=== PATIENT | female | born 1985 | race Caucasian/White ===

== ENCOUNTER 2020-08-31 11:10 | Emergency (ER) | payer MEDICARE, MEDICAID, SELFPAY ==
--- NOTE | 2020-08-31 12:27 | ED_ITS ---
HPI - URI/Sore Throat General Chief Complaint: Upper Respiratory Symptoms Stated Complaint: sore throat Time Seen by Provider: 08/31/20 12:08 Source: patient Mode of arrival: ambulatory Limitations: no limitations History of Present Illness HPI Narrative: Otherwise healthy 35-year-old female who reports prior history of strep in her teen years otherwise no past medical or surgical history presenting ambulatory via triage complaint of sore throat and white spots in the back of her throat. States this is been there for past 2 days and has had throat pain/irritation. She otherwise denies any dysphagia, difficulty breathing any GI or symptoms. No sick contacts or recent travel. MD elicited complaint: sore throat Onset (ago): day(s) Consistency: constant Severity: moderate Able to tolerate fluids by mouth: Yes Exacerbating factors: nothing Relieving factors: lozenge Associated symptoms: denies other symptoms Treatments prior to arrival: none Related Data Previous Rx's Medication Instructions Recorded penicillin V potassium 500 mg PO Q12H 10 Days #20 tab 08/31/20 Allergies Allergy/AdvReac Type Severity Reaction Status Date / Time No Known Allergies Allergy Verified 08/31/20 12:36 acetaminophen [Percocet] AdvReac Unknown increased Verified 08/31/20 12:36 anxiety, itching oxycodone [Percocet] AdvReac Unknown increased Verified 08/31/20 12:36 anxiety, itching Review of Systems Review of Systems: Constitutional: No Weight loss, No Fever, No Chills, No Night Sweats, No Fatigue, No Malaise ENT/Mouth: No Hearing loss, No Ear Pain, No Nasal Congestion, No Sinus Pain, No Hoarseness, No sore throat, No Rhinorrhea, No Swallowing Difficulty Eyes: No Eye Pain, No Swelling, No Redness, No Foreign Body, No Discharge, No Vision Changes Cardiovascular: No Chest Pain, No SOB, No Dyspnea on Exertion, No Orthopnea, No Edema, No Palpitations Respiratory: No Cough, No Sputum, No Wheezing, No Smoke Exposure, No Dyspnea Gastrointestinal: No Nausea, No Vomiting, No Diarrhea, No Constipation, No abdominal Pain, No Hematochezia, No Melena Genitourinary: No Dysuria, No Urinary Frequency, No Hematuria, No Urinary Incontinence, No Urgency, No Flank Pain, No Urinary Flow Changes, No Hesitancy Musculoskeletal: No joint pain, No Myalgias, No Joint Swelling Skin: No Skin Lesions, No rash Neuro: No Weakness, No Numbness, No Paresthesias, No Loss of Consciousness, No D izziness, No Headache Psych: No Social Issues Heme/Lymph: No Bruising, No Bleeding,No Lymphadenopathy Endocrine: No Polyuria, No Polydipsia, No Temperature Intolerance Yes all other systems are reviewed and are negative PMFSH Past Medical History Medical History No known health problems Social History Social History Advance Directives: No Advance Directives Information Provided: No Physical Exam Vital Signs: Vital Signs: Last Vital Signs Temp 98.3 F 08/31/20 12:37 Pulse 84 08/31/20 12:37 Resp 12 08/31/20 12:37 BP 137/82 08/31/20 12:37 Pulse Ox 98 08/31/20 12:37 Body Mass Index 32.5 Reviewed Const: General: cooperative and healthy appearing; No acute distress or intoxicated appearing Nutritional Appearance: average body habitus Orientation/consciousness: patient oriented x3 HENMT: Head: Yes normal to inspection Ears: hearing grossly normal bilaterally Mouth: Normal oral and palatal mucosa present, lip normal and tongue normal Teeth and gingiva: dentition normal Throat: Yes uvula midline, Yes abnormal tonsil (2+ with white exudate bilaterally. No evidence of [employer]CH[employer]ICIAN), No postnasal drainage, No uvula laterally displaced, No uvular edema and No cobblestoning Eyes: General: appearance normal, both eyes and all related structures Visual Young: normal visual young by confrontation Neck: Neck: Yes normal visual inspection, No positive Brudzinski's sign, No positive Kernig's sign and No tender Thyroid: Thyroid normal Chest: Chest palpation & inspection: normal inspection of the chest Resp: Effort & Inspection: normal respiratory effort Cardio: Jugular venous distension: no JVD GI: Inspection: Yes normal to inspection Percussion: Yes normal to percussion Auscultation: normal bowel sounds : General: Yes no CVA tenderness Back/Spine/Pelvis: Back: no CVA tenderness Skin: General skin exam: no rashes or lesions noted Neuro: General: patient oriented x3 Extrem: General: Yes normal to inspection Course Course Course Narrative: Feels like she has strep similar to her previous episodes exam consistent with strep pharyngitis will get rapid strep/culture if negative and COVID testing. She does not want to wait and would like to be called with the results. In the meantime will discharge her on penicillin, precaution him return, follow-up instructions she verbalized understanding and comfortable plan. Stable for discharge. Reevaluation(s) Reevaluation #1: 1430 Called and informed of her results MDM - URI/Sore Throat Lab Data Labs: Lab Results 08/31/20 Range/Units 12:48 Coronavirus (PCR) NEGATIVE (Negative) Influenza Type A (PCR) NEGATIVE (Negative) Influenza Type B (PCR) NEGATIVE (Negative) RSV RNA Qual (PCR) NEGATIVE (Negative) Discharge Plan Discharge Clinical Impression: Pharyngitis Qualifiers: Pharyngitis/tonsillitis etiology: streptococcus Qualified Code(s): J02.0 - S treptococcal pharyngitis Patient Disposition: Home, Self-Care Instructions: Pharyngitis (ED) Additional Instructions: Self-isolation Social distancing Take your antibiotics as prescribed We will call you with her strep and COVID results in 1 hour Although your exam is very much consistent with strep pharyngitis will go ahead and start you on antibiotics Supportive home care is reviewed Return if any concerns or worsening symptoms Thank you Prescriptions: New penicillin V potassium 500 mg tablet 500 mg PO Q12H 10 Days Qty: 20 RF: 0 Referrals: Audrey Simons FNP [Primary Care Provider] - 2 weeks
[2020-08-31 12:37] VITALS: BP 137/82; PULSE 84; RESP 12; TEMP 36.8; O2SAT 98; BMI 32.5
[2020-08-31 14:20] LABS: Influenza A PCR NEGATIVE (Negative); Influenza B PCR NEGATIVE (Negative); Resp Syncy Virus RNA Qual PCR NEGATIVE (Negative); SARS COV2 PCR INHOUSE NEGATIVE (Negative)
== END 2020-08-31 13:00 | disposition home or self-care (01) ==
PROVIDERS: Nurse Practitioner Primary Care; Emergency Provider Emergency Medicine; PCP Nurse Practitioner Family
DX: J02.0 Streptococcal pharyngitis (principal); Z20.822 Contact with and (suspected) exposure to COVID-19
CPT/HCPCS: 0241U; 36415; 87071; 87880; 99283

== ENCOUNTER 2020-11-29 21:06 | Emergency (ER) | payer MEDICARE, MEDICAID, SELFPAY ==
[2020-11-29 21:46] VITALS: BP 132/73; PULSE 82; RESP 18; TEMP 37; O2SAT 99; BMI 32.5
--- NOTE | 2020-11-29 22:49 | ED.SKABFB ---
HPI - Skin/Abscess/Foreign Bdy General Chief complaint: Skin/Abscess/Foreign Body Stated complaint: abcess Time Seen by Provider: 11/29/20 21:43 Source: patient Mode of arrival: ambulatory Limitations: no limitations History of Present Illness HPI narrative: 35-year-old female presents with cyst under the right breast. States this cyst has been present for quite some time however it gets enlarged every so often and is very painful. She finds it very difficult wearing clothes because of clothing rubs up against the area particularly her bras. She feels like she needs to tape upper breast to prevent the pressure on the cyst. She states this is the most painful it has been and is concerned about infection. She had the cyst evaluated while back however it was too small to be removed. 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 She denies fevers, chills, chest pain or pressure, palpitations, shortness breath, shortness breath on exertion, abdominal pain, abdominal distention, dysuria, hematuria, nausea, vomiting, diarrhea, constipation, and any other concerning symptoms. MD complaint: abscess/boil Onset (ago): day(s) (Three) Tetanus up to date: yes Location: chest Severity: moderate Severity scale (1-10): 5 Quality: aching Pain Consistency: constant Exacerbating factors: palpation and movement Associated symptoms: denies other symptoms Related Data Previous Rx's Medication Instructions Recorded penicillin V potassium 500 mg PO Q12H 10 Days #20 tab 08/31/20 amoxicillin-pot clavulanate 1 tab PO Q12H 10 Days #20 tab 11/29/20 [Augmentin] Allergies Allergy/AdvReac Type Severity Reaction Status Date / Time No Known Allergies Allergy Verified 08/31/20 12:36 acetaminophen [Percocet] AdvReac Unknown increased Verified 08/31/20 12:36 anxiety, itching oxycodone [Percocet] AdvReac Unknown increased Verified 08/31/20 12:36 anxiety, itching Review of Systems Review of Systems: Constitutional: No Fever, No Chills ENT/Mouth: No Ear Pain, No Hoarseness, No sore throat Eyes: No Eye Pain, No Swelling, No Redness, No Foreign Body Cardiovascular: No Chest Pain, No SOB Respiratory: No Cough, No Dyspnea Gastrointestinal: No Nausea, No Vomiting, No Diarrhea, No abdominal Pain Genitourinary: No Dysuria, No Hematuria Musculoskeletal: No joint pain, No Myalgias, No Joint Swelling Skin: Positive inflamed area under the right breast, No Skin lacerations, No rash Neuro: No Weakness, No Numbness, No Paresthesias, No Loss of Consciousness, No Dizziness, No Headache Psych: No Anxiety/Panic, No Depression Heme/Lymph: no easy bruising, no Lymphadenopathy Endocrine: No Polyuria, No Polydipsia Yes all other systems are reviewed and are negative [facility] Past Medical History Attestation statement: The following information was validated with the patient. Source: old records reviewed Medical History No known health problems Social History Social History Advance Directives: No Patient : No Physical Exam Vital Signs: Vital Signs: Last Vital Signs Temp 98.6 F 11/29/20 21:46 Pulse 82 11/29/20 21:46 Resp 18 11/29/20 21:46 BP 132/73 11/29/20 21:46 Pulse Ox 99 11/29/20 21:46 Body Mass Index 32.5 Appearance: Alert. Oriented X3. No acute distress. Eyes: Pupils equal, round and reactive to light. ENT: Pharynx normal. Neck: Normal inspection. Neck supple. CVS: Normal heart rate and rhythm. Pulses normal. Respiratory: No respiratory distress. Breath sounds normal. Abdomen: Soft and nontender. Skin: 3 cm x 2 cm area of cellulitis with hardened cyst-like nodule under the right breast. No area of fluctuance or pustule noted. Skin warm and dry. Normal skin color. Normal skin turgor. Extremities: No lower extremity edema. Neuro: No motor deficit. No sensory deficit. Course Course Course Narrative: 35-year-old female presents with enlarged cyst under the right breast. Cyst is hardened, there is some cellulitis over the area, measures approximately 4 cm x 2 cm. No area of fluctuance, highly unlikely that this can be appropriately I indeed at this time. Will order antibiotics Augmentin, and have patient follow-up with the General surgery for evaluation. This cyst fluctuates in size and pain level however this is the most painful this cyst has been for her. Patient verbalized understanding of and agrees plan of care discharge home. MDM - Skin/Abscess/Foreign Bdy Differential Diagnosis Differential diagnosis: Likely abscess of skin or subcutaneous tissue Medical Records Attestation: I reviewed the patient's medical records. Discharge Plan Discharge Clinical Impression: Cellulitis, Cyst Patient Disposition: Home, Self-Care Instructions: Cellulitis (ED), Cyst (ED) Additional Instructions: You were evaluated for a cyst with cellulitis under the right breast. We are giving you Augmentin antibiotic. Please take medication as directed. Complete the entire course. Please follow-up with Dr. Juarez, he has a surgeon. Make sure you bring the pictures of the cyst with you. Use Tylenol or Motrin as needed for pain management. Continue to use the warm compresses. Thank you for choosing this emergency department for evaluation. Please follow-up with primary care physician as needed. Return to the emergency department for any new, concerning, or worsening symptoms. Prescriptions: New amoxicillin-pot clavulanate [Augmentin] 875-125 mg tablet 1 tab PO Q12H 10 Days Qty: 20 RF: 0 No Action penicillin V potassium 500 mg tablet 500 mg PO Q12H 10 Days Qty: 20 RF: 0 Interventions: ED Discharge Assessment Last Done: 11/29/20 23:27 Discharge Date/Time: 11/29/20 23:28
[2020-11-29] MEDS: Amoxicillin/Potassium Clav 875 MG TABLET PO (23:21)
== END 2020-11-29 23:28 | disposition home or self-care (01) ==
PROVIDERS: Emergency Provider Internal Medicine
DX: L03.313 Cellulitis of chest wall (principal); L72.3 Sebaceous cyst
CPT/HCPCS: 99283

== ENCOUNTER → 2020-12-03 09:01 | Outpatient (BNVA) | payer MEDICARE, MEDICAID, SELFPAY | PROVIDERS: Visit Provider Surgery | DX: L02.91 Cutaneous abscess, unspecified (principal) | CPT/HCPCS: 10061; 99202 ==

== ENCOUNTER 2021-08-20 09:16 | Emergency (ER) | payer MEDICARE, MEDICAID, SELFPAY ==
[2021-08-20 09:22] VITALS: BP 144/68; PULSE 81; RESP 18; TEMP 36.8; O2SAT 100; BMI 31.7
--- NOTE | 2021-08-20 09:48 | ED.GENADULT ---
HPI - General Adult General Chief complaint: Skin/Abscess/Foreign Body Stated complaint: abscess Time Seen by Provider: 08/20/21 09:40 Source: patient Limitations: no limitations History of Present Illness HPI narrative: Patient presents the ER complaining of left medial breast question infection versus abscess. Patient states symptoms started about 3-4 days ago patient had some amoxicillin home which she started which gave her marked improvement of redness of that area on the left side. Patient states she has had slight infections in the past but never had them drained. There has been no discharge from this area. Patient takes clonazepam as needed for anxiety he has been taking the amoxicillin recently. No other complaints at this time. Patient does have an allergy to oxycodone. Pain 10/27. Related Data Home Medications Medication Instructions Recorded Confirmed clonazepam 2 mg tablet 2 mg PO BID PRN 12/03/20 12/03/20 Previous Rx's Medication Instructions Recorded penicillin V potassium 500 mg 500 mg PO Q12H 10 Days #20 tab 08/31/20 tablet amoxicillin 875 mg-potassium 1 tab PO Q12H 10 Days #20 tab 11/29/20 clavulanate 125 mg tablet (Augmentin) cephalexin 500 mg capsule 500 mg PO Q8H 7 Days #21 cap 11/30/20 amoxicillin 875 mg-potassium 1 tab PO BID #20 tab 08/20/21 clavulanate 125 mg tablet Allergies Allergy/AdvReac Type Severity Reaction Status Date / Time oxycodone [Percocet] AdvReac Unknown increased Verified 08/20/21 09:21 anxiety, itching Review of Systems Constitutional: Constitutional: Denies chills, Denies fatigue, Denies fever(s) and Denies headache(s) ENT: Denies headache(s) Cardiovascular: Cardiovascular: Denies chest pain and Denies dyspnea Respiratory: Respiratory: Denies dyspnea Gastrointestinal: Gastrointestinal: Denies diarrhea, Denies nausea and Denies vomiting Integumentary/Breasts: Skin/Breast: Reports other (Left medial breast redness) Neurologic: Denies headache(s) Endocrine: Endocrine: Denies fatigue PMFSH Past Medical History Attestation statement: The following information was validated with the patient. Medical History Depression No known health problems Subcutaneous abscess Surgical History History of delivery Family History Family History Maternal Grandmother Stomach cancer Family/Other Thyroid cancer Social History Social History Alcohol intake: never Patient Tobacco Use Status: Never used Tobacco Use of substances other than those prescribed or required for medical reasons: No Advance Directives: No Physical Exam ED Vital Signs: Vital Signs - 24 hr 08/20/21 09:22 Temperature 98.3 F Pulse Rate 81 Respiratory Rate 18 Blood Pressure 144/68 H Pulse Oximetry 100 BMI result Body Mass Index 31.7 vital signs have been reviewed as normal and appeared to be correct. Blood pressure normal. Heart rate normal. Respiration rate normal. Temperature normal. Oxygen saturation normal. Appearance: Alert. Oriented X3. No acute distress. Head: Normal external exam. Normocephalic. Atraumatic. No Quiroz signs noted. No raccoon eyes noted Eyes: PERRLA. EOMI. Conjunctiva and sclera normal. Eyelids normal. ENT: Pharynx normal. Uvula midline. Moist mucous membranes. Neck: Soft full range of motion Back: Full range of motion noted. Skin: Left medial breast area of erythema slight induration noted. Nonfluctuant mass or a hard small area. Rest of the breast is clear size approximate 2-4 cm Extremities: No lower extremity edema. Extremities exhibit normal range of motion. Extremities nontender. Neuro: Oriented X 3. No motor deficit. No sensory deficit. Reflexes normal. Course Course Course Narrative: Left breast cellulitis Skin abscess Cyst Case discussed with Dr. Joshua will do the needle aspirate at this time change patient overall to Augmentin Procedures Procedure Narrative Procedure Narrative: Left medial breasts I&D Area cleaned with Betadine Anesthetized with 1% lidocaine 18 gauge needle aspirated positive purulent discharge Small incision placed with 11 blade positive purulent discharge no packing placed wound dressed Discharge Plan Discharge Clinical Impression: Abscess of skin or subcutaneous tissue Patient Disposition: Home, Self-Care Instructions: Abscess (ED), Abscess Incision and Drainage (DC) Additional Instructions: Antibiotics as directed Return if symptoms worsen Warm compresses recommended Prescriptions: New amoxicillin-pot clavulanate 875-125 mg tablet 1 tab PO BID Qty: 20 0RF No Action penicillin V potassium 500 mg tablet 500 mg PO Q12H 10 Days Qty: 20 0RF amoxicillin-pot clavulanate [Augmentin] 875-125 mg tablet 1 tab PO Q12H 10 Days Qty: 20 0RF cephalexin 500 mg capsule 500 mg PO Q8H 7 Days Qty: 21 0RF clonazepam 2 mg tablet 2 mg PO BID [id number]
--- NOTE | 2021-08-20 09:49 | PC.NURSE ---
pt a&o, no sob or chest pain. provider into assess pt with this Rn at the bedside. No sign of distress during examination. Will continue to monitor.
--- NOTE | 2021-08-20 09:53 | PC.NURSE ---
pt medicated per mar for bedside procedure.
[2021-08-20] MEDS: Lidocaine HCl 1 % 20 ML VIAL 5 ML INFILTRATI (09:56)
[2021-08-20] MEDS: Amoxicillin/Potassium Clav 875 MG TABLET PO (10:36)
[2021-08-20 10:40] VITALS: RESP 16
== END 2021-08-20 10:41 | disposition home or self-care (01) ==
PROVIDERS: Emergency Provider Emergency Medicine; PCP Internal Medicine
DX: N61.1 Abscess of the breast and nipple (principal)
CPT/HCPCS: 10060; 99284

== ENCOUNTER → 2022-03-04 10:38 | Outpatient (BNVA) | payer MEDICARE, MEDICAID, SELFPAY | PROVIDERS: PCP Internal Medicine; Referring Provider Internal Medicine; Visit Provider Surgery | DX: N61.1 Abscess of the breast and nipple (principal); L72.9 Follicular cyst of the skin and subcutaneous tissue, unspecified | CPT/HCPCS: 10060; 10061; 99212 ==

== ENCOUNTER → 2022-07-19 13:49 | Outpatient (BNVA) | payer MEDICARE, MEDICAID, SELFPAY | PROVIDERS: PCP Internal Medicine; Visit Provider Surgery | DX: N61.1 Abscess of the breast and nipple (principal) | CPT/HCPCS: 10061; 87070; 87205; 99212 ==

== ENCOUNTER 2022-07-19 16:24 | Outpatient (REF) | payer MEDICARE, MEDICAID, SELFPAY | END 2022-07-19 16:25 | disposition home or self-care (01) | LOC: HO.LNP 16:24 | PROVIDERS: Visit Provider Surgery | DX: Z13.89 Encounter for screening for other disorder (principal) | CPT/HCPCS: 87070; 87205 ==

== ENCOUNTER → 2022-08-04 14:08 | Outpatient (BNVA) | payer MEDICARE, MEDICAID, SELFPAY | PROVIDERS: PCP Internal Medicine; Visit Provider Surgery | DX: L72.9 Follicular cyst of the skin and subcutaneous tissue, unspecified (principal); Z98.890 Other specified postprocedural states | CPT/HCPCS: 99212 ==

== ENCOUNTER 2022-10-13 13:22 | Outpatient (REF) | payer MEDICARE, MEDICAID, SELFPAY ==
[2022-10-16 07:23] LABS: HPV mRNA E6/E7 rflx Not Detected (Not Detected)
== END 2022-10-13 13:23 | disposition home or self-care (01) ==
LOC: HO.LNP 13:22
PROVIDERS: PCP Internal Medicine; Visit Provider Obstetrics & Gynecology
DX: Z01.419 Encounter for gynecological examination (general) (routine) without abnormal findings (principal); D25.9 Leiomyoma of uterus, unspecified
CPT/HCPCS: 87624; 88142

== ENCOUNTER 2022-10-22 13:04 | Outpatient (REF) | payer MEDICARE, MEDICAID, SELFPAY ==
--- NOTE | ~2022-10-22 | US_ITS ---
EXAMINATION: US PELVIS CLINICAL INFORMATION: 37-year-old, LMP 1423. Follow-up fibroid. COMPARISON: 01/06/2017 TECHNIQUE: Ultrasound of the pelvis is performed using both transabdominal and transvaginal transducers along with Doppler. Transvaginal imaging is performed due to inadequate visualization transabdominally. FINDINGS: Uterus: The uterus is anteverted and measures 9.3 x 6.0 x 6.7 cm. The double wall endometrial thickness is 0.9 mm. The uterus is smooth in contour and has normal myometrial echogenicity. Multiple uterine fibroids are noted. Left posterior uterine body subserosal fibroid measures 3.2 cm. Right anterior uterine body subserosal fibroid measures 2.5 cm. Left posterior uterine body fibroid measures 2.6 cm with a possible submucosal component. Adnexa: Both ovaries are visualized. There is normal color flow to the adnexa. There is no ovarian torsion. There is no pelvic ascites or fluid collection. Right ovary measures 3.3 x 2.9 x 2.3 cm. Left ovary measures 3.8 x 2.6 x 2.5 cm. Left intraovarian 1.3 x 1.6 x 1.7 cm cyst, avascular with low level internal echoes. US/US pelvic and transvaginal IMPRESSION: * Left intraovarian 1.7 cm avascular cyst with low-level internal echoes may reflect a hemorrhagic cyst. Recommend follow-up in 6-12 weeks to assess for resolution. * Multiple uterine fibroids, one of which may have a submucosal component.
== END 2022-10-22 13:05 | disposition home or self-care (01) ==
LOC: HO.US 13:04
PROVIDERS: PCP Internal Medicine; Visit Provider Obstetrics & Gynecology
DX: D25.9 Leiomyoma of uterus, unspecified (principal)
CPT/HCPCS: 76830; 76856

== ENCOUNTER → 2022-11-11 11:48 | Outpatient (BNVA) | payer MEDICARE, MEDICAID, SELFPAY | PROVIDERS: PCP Internal Medicine; Visit Provider Obstetrics & Gynecology | DX: D25.9 Leiomyoma of uterus, unspecified (principal); N83.299 Other ovarian cyst, unspecified side | CPT/HCPCS: 99212 ==

== ENCOUNTER 2022-12-08 11:15 | Outpatient (REF) | payer MEDICARE, MEDICAID, SELFPAY ==
--- NOTE | ~2022-12-08 | US_ITS ---
EXAMINATION: US PELVIS CLINICAL INFORMATION: Ovarian cysts, nonspecific COMPARISON: 10/22/2022 TECHNIQUE: Ultrasound of the pelvis is performed using both transabdominal and transvaginal transducers along with Doppler. Transvaginal imaging is performed due to inadequate visualization transabdominally. FINDINGS: Uterus: The uterus is anteverted and measures 9.5 x 5.8 x 5.9 cm. With a volume of 170 mL There are a few uterine fibroids size is 3.8 x 3.8 x 2.8 cm growing since previous study in the posterior aspect of the fundus, 2.7 x 2.2 x 2.8 cm, in the anterior body subserosal slightly growing since the previous study, 2.4 x 2.0 x 2.5 cm diminished since previous examination in the lower uterine segment posterior and 3.9 x 2.5 x 2.6 cm, in anterior aspect of the body. The double wall endometrial thickness is 0.5 mm. Adnexa: Both ovaries are visualized. There is normal color flow to the adnexa. There is no ovarian torsion. There is no pelvic ascites or fluid collection. Right ovary measures 2.6 x 2.2 x 2.5 cm. With a volume of 7.7 mL. There are no cysts or masses Left ovary measures 2.7 x 2.0 x 2.4 cm. With a volume of 8.1 mL. There are no cysts or masses. US/US pelvic and transvaginal IMPRESSION: Multiple uterine fibroids.
== END 2022-12-08 11:16 | disposition home or self-care (01) ==
LOC: HO.US 11:15
PROVIDERS: PCP Internal Medicine; Visit Provider Obstetrics & Gynecology
DX: N83.299 Other ovarian cyst, unspecified side (principal)
CPT/HCPCS: 76830; 76856

== ENCOUNTER 2022-12-29 12:02 | Outpatient (AMB) | payer MEDICARE, MEDICAID, SELFPAY ==
--- NOTE | 2022-12-29 12:03 | MHC.OFFVIS ---
Intake Vital Signs 12/29/22 12:06 Height 5 ft 4 in Weight 178 lb 9.191 oz BMI 30.6 BP 110/70 Intake Visit Reasons: US Follow up Walking Dragline Operator Required: No Information Interpreted: non-clinical & clinical Accompanied by: Self / Same As Patient Allergies oxycodone [Percocet] Adverse Reaction (Unknown, Verified 12/29/22 12:06) increased anxiety, itching Is last menstrual period known: Yes Last menstrual period: 12/24/22 HPI HPI Comments History of Present Illness Details Presenting for follow-up ultrasound. Ultrasound done recently showed the following: Uterus: The uterus is anteverted and measures 9.5 x 5.8 x 5.9 cm.? With a volume of 170 mL There are a few uterine fibroids size is 3.8 x 3.8 x 2.8 cm growing since previous study in the posterior aspect of the fundus, 2.7 x 2.2 x 2.8 cm, in the anterior body subserosal slightly growing since the previous study, 2.4 x 2.0 x 2.5 cm diminished since previous examination in the lower uterine segment posterior and 3.9 x 2.5 x 2.6 cm, in anterior aspect of the body. The double wall endometrial thickness is 0.5 mm.? Adnexa: Both ovaries are visualized. There is normal color flow to the adnexa. There is no ovarian torsion.? There is no pelvic ascites or fluid collection. Right ovary measures 2.6 x 2.2 x 2.5 cm. With a volume of 7.7 mL. There are no cysts or masses Left ovary measures 2.7 x 2.0 x 2.4 cm. With a volume of 8.1 mL. There are no cysts or masses. [facility] Medical History Cyst of buttocks Depression Left breast abscess No known health problems Subcutaneous abscess Surgical History History of delivery History of loop electrical excision procedure (LEEP) Family History Maternal Grandmother Stomach cancer Family/Other Thyroid cancer Social History Household Members: Spouse and Children Housing: House Alcohol intake: never Patient Tobacco Use Status: Current someday Tobacco user Cigarettes Per Day: 5 Current occupational status: employed and unemployed Sexual orientation: Straight/Heterosexual Gender identity: Female Female Reproductive History Menstrual Age of Menarche: 11 Date of last menstrual period: 12/24/22 Review of Systems Const All systems reviewed & are unremarkable except as noted in HPI and below Reports as per HPI and Reports no additional complaints GI Reports no additional complaints Reports no additional complaints Physical Exam Vital Signs: Last Vital Signs BP 110/70 12/29/22 12:06 BMI result Body Mass Index 30.6 Assessment & Plan Assessment & Plan (1) Complex ovarian cyst: Code(s): N83.299 - Other ovarian cyst, unspecified side Plan: Discussed with the patient ultrasound findings showing the previously identified complex cyst has resolved. The patient was instructed to call if symptoms recur. All questions were answered the patient verbalized understanding. (2) Uterine myoma: Code(s): D25.9 - Leiomyoma of uterus, unspecified Plan: Discussed with the patient the findings on pelvic ultrasound & the risk of myosarcoma; discussed with the patient the options of treatment including expectant management versus hysterectomy; the pros and cons, risks benefits of each approach were discussed with the patient including the fact that in cases of myosarcoma, surgical treatment can lead to early diagnosis and positively affects the prognosis; after further discussion, the patient decided to proceed with expectant management. Will repeat pelvic ultrasound periodically. Instructions given to patient to call in case any of the following occurs: pressure symptoms, abnormal uterine bleeding, pelvic pain; and to schedule a future office follow-up appointment for reassessment and to order a repeat ultrasound . All questions answered, the patient verbalized understanding and agreed with the plan . Coding Level of Care Code Est Pt Level 3 (17941) Diagnoses Complex ovarian cyst N83.299 Uterine myoma D25.9
[2022-12-29 12:06] VITALS: BP 110/70; BMI 30.6
== END 2022-12-29 14:14 | disposition home or self-care (01) ==
LOC: HO.HWS 12:02
PROVIDERS: PCP Internal Medicine; Visit Provider Obstetrics & Gynecology
DX: N83.299 Other ovarian cyst, unspecified side (principal); D25.9 Leiomyoma of uterus, unspecified
CPT/HCPCS: 99213

== ENCOUNTER → 2022-12-29 12:02 | Outpatient (BNVA) | payer MEDICARE, MEDICAID, SELFPAY | PROVIDERS: PCP Internal Medicine; Visit Provider Obstetrics & Gynecology | DX: N83.299 Other ovarian cyst, unspecified side (principal); D25.9 Leiomyoma of uterus, unspecified | CPT/HCPCS: 99212 ==

== ENCOUNTER 2023-05-21 17:25 | Emergency (ER) | payer MEDICARE, MEDICAID, SELFPAY ==
[2023-05-21 17:56] VITALS: BP 120/65; PULSE 72; RESP 18; TEMP 36.7; O2SAT 100; BMI 30.9
--- NOTE | 2023-05-21 17:57 | ED_ITS ---
HPI - General Adult General Stated complaint: blocked ears History of Present Illness HPI narrative: Patient is a 37-year-old female who presents emergency department for evaluation of bilateral ears feeling plugged L>R, onset 4 days ago, non-painful. She endorses some postnasal drip with mild nasal congestion. Denies fevers, chills, sore throat, cough, shortness of breath Related Data Home Medications Medication Instructions Recorded Confirmed clonazepam 2 mg tablet 2 mg PO BID PRN 12/03/20 07/19/22 Allergies Allergy/AdvReac Type Severity Reaction Status Date / Time oxycodone [Percocet] AdvReac Unknown increased Verified 05/21/23 17:56 anxiety, itching Review of Systems Review of Systems: Yes all other systems are reviewed and are negative [facility] Past Medical History Attestation statement: The following information was validated with the patient. Source: old records reviewed Medical History Cyst of buttocks Left breast abscess Subcutaneous abscess Depression No known health problems Surgical History History of loop electrical excision procedure (LEEP) History of delivery Family History Family History Maternal Grandmother Stomach cancer Family/Other Thyroid cancer Social History Social History Household Members: Spouse and Children Housing: House Alcohol intake: never Patient Tobacco Use Status: Current someday Tobacco user Cigarettes Per Day: 5 Current occupational status: employed and unemployed Sexual orientation: Straight/Heterosexual Gender identity: Female Physical Exam ED Appearance: Alert.?Oriented to person, place and time. No acute distress.?Nor mal affect. Eyes: Pupils equal, round and reactive to light.? ENT: Pharynx normal.??TM intact bilaterally, bilateral otitis media effusion, no erythema, bulging, opacity. No lesions in the external canal nor cerumen impaction. No postauricular tenderness/mastoid tenderness. Tragus and auricle nontender Neck: Normal inspection.? Neck supple.?? CVS: Heart sounds normal. Normal heart rate and rhythm.? Pulses normal.?? Respiratory: No respiratory distress.? Lung sounds clear to auscultation bilaterally?? Skin: Skin warm and dry.? Normal skin color.? Neuro: Moves all extremities spontaneously. Sensation intact bilaterally. Ambulates with normal steady gait. Medical Decision Making Medical Decision Making MDM Narrative: Patient is a 37-year-old female who presents emergency department for evaluation of bilateral ear complaint as per HPI. Physical examination reveals no indication of acute otitis media, TM is intact bilaterally, exam consistent with otitis media with effusion bilaterally. Reviewed these findings with patient. Likely secondary to allergic rhinitis versus recent viral illness. Declined testing for COVID-19/RSV/influenza. Advised the use of OTC decongestants, antihistamines, and intranasal corticosteroids. Reviewed worrisome signs and symptoms that would warrant re-evaluation in the emergency department. All que stions answered. Stable for discharge. Differential Diagnosis Differential Diagnoses: The differential diagnosis associated with the prese ntation includes (As noted above) Independent Historian Clinical information obtained from an independent historian. History obtained from or confirmed by: Spouse External Record Review External record reviewed: Outpatient record Prescription Management I considered prescription management with: Antibiotic (No indication of acute bacterial and infection, antibiotics deferred) Discharge Plan Discharge Clinical Impression: Bilateral otitis media with effusion Patient Disposition: Home, Self-Care Additional Instructions: As discussed, there is no evidence of infection at this time the wires treatment with antibiotics. Please be sure to rest over the next few days, continue use of your OTC medication as you have trialed. As discussed, you can trial treat ment with decongestants, and antihistamines. If you develop worsening symptoms, pain, injury, loss of hearing, fevers, chills, this should be re-evaluated. Contact your primary care provider and arrange for a follow-up visit as needed. Prescriptions: No Action clonazepam 2 mg tablet 2 mg PO BID PRN Referrals: Karen Dumont MD [Primary Care Provider] -
== END 2023-05-21 18:37 | disposition home or self-care (01) ==
PROVIDERS: Emergency Provider Emergency Medicine; PCP Internal Medicine
DX: H65.93 Unspecified nonsuppurative otitis media, bilateral (principal)
CPT/HCPCS: 99282

== ENCOUNTER 2023-06-06 12:56 | Outpatient (AMB) | payer MEDICARE, MEDICAID, SELFPAY ==
[2023-06-06 14:33] VITALS: BP 128/70; PULSE 77; TEMP 36.5; O2SAT 99; BMI 32.4
--- NOTE | 2023-06-06 14:33 | AM.OFFWIN_ITS ---
Intake Vital Signs 06/06/23 14:33 Height 5 ft 4 in Weight 189 lb BMI 32.4 BP 128/70 Blood Pressure Location Rt brachial Position Sitting Pulse 77 Pulse Source Pulse Oximeter Temp 97.7 F Temp Source Temporal Artery Scan Pulse Oximetry (%) 99 Oxygen Delivery Method Room Air Intake Visit Reasons: EP,bilateral ear blockage,congestion([phone]) Intake Note: pt is here for c.o ear blockage 1x month, congestion Patient Tobacco Use Status: Current someday Tobacco user Allergies oxycodone [Percocet] Adverse Reaction (Unknown, Verified 06/06/23 15:05) increased anxiety, itching Medication List - Last Reconciled 06/06/23 by Vic Kitchen MD buspirone 15 mg PO TID clonazepam 2 mg PO BID PRN Do you need a note to return to daycare/school/sports/work: Yes HPI EP,bilateral ear blockage,congestion([phone]) HPI Details Patient presents for a sick visit. Reporting symptoms of sinus congestion, sore throat and difficulty swallowing. Low-grade fever. No family member is sick. No recent travel. Patient reports symptoms of malaise and fatigue. Symptoms of ear pain for the past month. Both ears are blocked. [facility] Medical History Cyst of buttocks Left breast abscess Subcutaneous abscess Depression No known health problems Surgical History History of loop electrical excision procedure (LEEP) History of delivery Family History Maternal Grandmother Stomach cancer Family/Other Thyroid cancer Social History Household Members: Spouse and Children Housing: House Alcohol intake: never Patient Tobacco Use Status: Current someday Tobacco user Cigarettes Per Day: 5 Current occupational status: employed and unemployed Sexual orientation: Straight/Heterosexual Gender identity: Female Female Reproductive History Menstrual Age of Menarche: 11 Physical Exam Vital Signs: Last Vital Signs Temp 97.7 F 06/06/23 14:33 Pulse 77 06/06/23 14:33 BP 128/70 12/18/23 14:33 Pulse Ox 99 06/06/23 14:33 Oxygen Delivery Method Room Air 06/06/23 14:33 BMI result Body Mass Index 32.4 Const General: cooperative and healthy appearing Nutritional Appearance: well nourished Orientation/consciousness: patient oriented x3 Limitations: no limitations HEENT Other: Bilateral ears: Tympanic membrane is dull bilaterally. Head: Yes normal to inspection Eyes General: appearance normal, both eyes and all related structures Neck Neck: Yes normal visual inspection Chest Chest palpation & inspection: normal palpation of entire chest wall Resp Effort & Inspection: normal respiratory effort Neuro General: patient oriented x3 Assessment & Plan Assessment & Plan (1) Upper respiratory tract infection: Code(s): J06.9 - Acute upper respiratory infection, unspecified Plan: Antibiotics called in. Increase fluid intake. If symptoms do not improve to follow-up here. Coding Level of Care Code Est Pt Level 3 (93712) Diagnoses Upper respiratory tract infection J06.9
== END 2023-06-06 15:10 | disposition home or self-care (01) ==
PROVIDERS: PCP Internal Medicine; Visit Provider Internal Medicine
DX: J06.9 Acute upper respiratory infection, unspecified (principal)
CPT/HCPCS: 99213

== ENCOUNTER 2023-08-15 20:46 | Emergency (ER) | payer MEDICARE, MEDICAID, SELFPAY ==
[2023-08-15 20:58] VITALS: BP 148/84; PULSE 90; RESP 18; TEMP 37.2; O2SAT 98; BMI 32.6
[2023-08-15 21:25] LABS: IDNOW Serial# 58CA691E
[2023-08-15 21:26] LABS: Strep A Nucleic Acid Negative (Negative)
[2023-08-15 21:38] LABS: COVID-19 Test Negative (Negative); IDNOW Serial# 08D9AD1C; IDNOW Serial# 152EDE1D; Influenza A Negative (Negative); Influenza B2 Negative (Negative)
[2023-08-15 23:20] VITALS: BP 125/79; PULSE 76; RESP 16; O2SAT 99
--- NOTE | 2023-08-16 00:07 | ED_ITS ---
HPI - General Adult General Chief complaint: General Medical Stated complaint: fever,body ,head ache Time Seen by Provider: 08/15/23 23:23 Source: patient Mode of arrival: ambulatory Limitations: no limitations History of Present Illness HPI narrative: 38-year-old female came in for evaluation of right ear pain, right facial pressure, subjective fever, sore throat, body ache, headache loss taste for 4 days, patient took multiple home COVID tests which were negative. No sick contacts, no recent travel. Related Data Home Medications Medication Instructions Recorded Confirmed clonazepam 2 mg tablet 2 mg PO BID PRN 12/03/20 07/19/22 buspirone 15 mg tablet 15 mg PO TID 06/06/23 Previous Rx's Medication Instructions Recorded azithromycin 250 mg tablet See Rx Instructions PO .COMPLEX #6 06/06/23 tabs amoxicillin 875 mg-potassium 1 tab PO BID #14 tabs 08/16/23 clavulanate 125 mg tablet prednisone 20 mg tablet 20 mg PO BID #10 tabs 08/16/23 Allergies Allergy/AdvReac Type Severity Reaction Status Date / Time oxycodone [Percocet] AdvReac Unknown increased Verified 08/15/23 20:57 anxiety, itching Review of Systems Review of Systems: All other systems are reviewed and are negative Constitutional: Reports as per HPI and Reports no additional constitutional complaints Eyes: Reports as per HPI and Reports no additional eye complaints Reports system reviewed and no additional complaints, except as documented Cardiovascular: Reports as per HPI and Reports no additional cardiovascular complaints Respiratory: Reports as per HPI and Reports no additional respiratory complaints Gastrointestinal: Reports as per HPI and Reports no additional gastrointestinal complaints Genitourinary: Reports no additional female genitourinary complaints Musculoskeletal: Reports no additional musculoskeletal complaints Skin/Breast: Reports system reviewed and no additional complaints, except as docu Psychiatric: Reports no additional psychiatric complaints Endocrine: Reports no additional endocrine complaints Hematologic/Lymphatic: Reports no additional hematologic/lymphatic complaints Allergic/Immunologic: Reports no additional allergic/immunologic complaints Reports system reviewed and no additional complaints, except as documented and Reports Abnormal speech present [facility] Past Medical History Medical History Cyst of buttocks Left breast abscess Subcutaneous abscess Depression No known health problems Surgical History History of loop electrical excision procedure (LEEP) History of delivery Family History Family History Maternal Grandmother Stomach cancer Family/Other Thyroid cancer Social History Social History Household Members: Spouse and Children Housing: House Alcohol intake: never Patient Tobacco Use Status: Current someday Tobacco user Cigarettes Per Day: 5 Advance Directives: No Advance Directives Information Provided: No Current occupational status: employed and unemployed Sexual orientation: Straight/Heterosexual Gender identity: Female Physical Exam ED Vital Signs: Vital Signs - 24 hr 08/15/23 20:58 08/15/23 23:20 Temperature 98.9 F Pulse Rate 90 76 Respiratory Rate 18 16 Blood Pressure 148/84 H 125/79 Pulse Oximetry 98 99 Oxygen Delivery Method Room Air Room Air BMI result Body Mass Index 32.6 Vital signs have been reviewed and appear to be correct. Blood pressure elevated. Heart rate normal. Respiratory rate normal. Temperature normal. Oxygen saturation normal. Appearance: Alert. Oriented X3. No acute distress. Head: Normal external exam. Normocephalic. Atraumatic. No Quiroz signs noted. No raccoon eyes noted Eyes: PERRLA. EOMI. Conjunctiva and sclera normal. Eyelids normal. ENT:Right TM erythema, right maxillary sinus tenderness on percussion. Pharynx normal. Uvula midline. Moist mucous membranes. No trismus noted. No drooling noted. No muffled voice noted. Neck: Normal inspection. Neck supple. FROM. No adenopathy. Thyroid Normal. No meningeal signs. No neck mass noted. CVS: Normal heart rate and rhythm. Heart sound normal. No murmurs noted. Pulses normal throughout. Respiratory: No respiratory distress. Painless inspiration. Breath sounds normal. No wheezes/rales/rhonchi noted. Chest nontender. No accessory muscle usage noted or decreased air movement noted. Abdomen: Soft and nontender. Bowel sounds normal in all 4 quadrants. No distention noted. No organomegaly noted. No visible injury noted. Back: No CVA tenderness. Full range of motion noted. Skin: Skin warm and dry. Normal skin color. Normal skin turgor. No rashes/lesions/lacerations noted. Extremities: No lower extremity edema. Extremities exhibit normal range of motion. Extremities nontender. Neuro: Oriented X 3. Cranial nerve exam: II-XII are grossly intact No motor deficit. No sensory deficit. Reflexes normal. Course Reevaluation(s) Reevaluation #1: physical exam is consistent with right OM and right maxillary sinusitis will start the patient on Augmentin and short course of prednisone . Time: 00:12 Medical Decision Making Differential Diagnosis Differential Diagnoses: The differential diagnosis associated with the presentation includes ( COVID-19 infection, influenza infection, RSV, sinusitis, strep pharyngitis, otitis media) Admission/Observation Consideration of admission/observation: Escalation of care including admission/observation considered Lab Data MDM Lab Attestation statement: I reviewed the patient's lab results. Labs: Lab Results 08/15/23 Range/Units 21:10 COVID-19 (LÓPEZ) Negative (Negative) COVID-19 Clin Com See Note Influenza Type A (ZOHAIB) Negative (Negative) Influenza Type B (ZOHAIB) Negative (Negative) Influenza A & B Note See Note S. pyogenes GrpA ZOHAIB Negative (Negative) Discharge Plan Discharge Clinical Impression: Otitis media, Acute maxillary sinusitis Patient Disposition: Home, Self-Care Instructions: Sinusitis (ED), Ear Infection (ED) Prescriptions: New amoxicillin-pot clavulanate 875-125 mg tablet 1 tab PO BID Qty: 14 0RF prednisone 20 mg tablet 20 mg PO BID Qty: 10 0RF No Action buspirone 15 mg tablet 15 mg PO TID azithromycin 250 mg tablet See Rx Instructions PO .COMPLEX Qty: 6 0RF Rx Instructions: take 500 mg today (day 1), then 250 mg for 4 days (days 2-5) PO clonazepam 2 mg tablet 2 mg PO BID PRN Referrals: Roverto Oseguera [Physician] -
[2023-08-16] MEDS: Amoxicillin/Potassium Clav 875 MG TABLET PO (00:14)
[2023-08-16] MEDS: predniSONE 20 MG TABLET 40 MG PO (00:14)
== END 2023-08-16 00:28 | disposition home or self-care (01) ==
PROVIDERS: Emergency Provider Emergency Medicine
DX: H66.91 Otitis media, unspecified, right ear (principal); J01.00 Acute maxillary sinusitis, unspecified; H92.01 Otalgia, right ear; R50.9 Fever, unspecified; J02.9 Acute pharyngitis, unspecified; R51.9 Headache, unspecified; F17.210 Nicotine dependence, cigarettes, uncomplicated; Z11.52 Encounter for screening for COVID-19
CPT/HCPCS: 87502; 87635; 87651; 99283

== ENCOUNTER 2023-10-17 12:35 | Outpatient (AMB) | payer MEDICARE, MEDICAID, SELFPAY ==
[2023-10-17 12:41] VITALS: BP 104/60; BMI 33.1
--- NOTE | 2023-10-17 12:41 | A.OFFVIS_ITS ---
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 Complaining of heavy menstrual cycles associated with passage of blood clots and pelvic cramping in addition the patient has been having recurrent BV symptoms. Last Pap/HPV was negative in 10/10 [facility] Medical History Cyst of buttocks Left breast abscess Subcutaneous abscess Depression No known health problems Surgical History History of loop electrical excision procedure (LEEP) History of delivery Family History Maternal Grandmother Stomach cancer Family/Other Thyroid cancer Social History Household Members: Spouse and Children Housing: House Alcohol intake: never Patient Tobacco Use Status: Current someday Tobacco user Cigarettes Per Day: 5 Current occupational status: employed and unemployed Sexual orientation: Straight/Heterosexual Gender identity: Female Female Reproductive History Menstrual Age of Menarche: 11 Duration of menses: 6-7 days Date of last menstrual period: 10/05/23 Total pregnancies: 3 Full term: 1 Number of Living Children: 2 Ab induced: 2 Multiple births: 1 Date of last pap smear: 10/13/22 (neg pap and hpv) History of abnormal pap smear: Yes (hx leep manuel 2 2000) Review of Systems Const All systems reviewed & are unremarkable except as noted in HPI and below Card Reports as per HPI Resp Reports as per HPI GI Reports as per HPI and Reports no additional complaints Reports as per HPI Physical Exam Vital Signs: Last Vital Signs BP 104/60 10/17/23 12:41 BMI result Body Mass Index 33.1 Const General: cooperative, healthy appearing and comfortable Chest Chest palpation & inspection: normal inspection of the chest and normal palpation of entire chest wall Breast/axilla inspection: normal inspection of the breasts and normal inspection of the axillae Breast/axilla palpation: normal palpation of the breasts, normal palpation of the axillae and no axillary lymphadenopathy Resp Effort & Inspection: normal respiratory effort Auscultation: clear to auscultation bilaterally Percussion: percussion normal Cardio Palpation: normal PMI Rate: regular rate Rhythm: regular rhythm Heart sounds: no murmurs and no rubs Peripheral pulses: Peripheral pulses 2+ throughout GI Inspection: Yes normal to inspection Palpation (GI): Soft to palpation, nontender, no guarding, not rigid and No hepatosplenomegaly present Percussion: Yes normal to percussion Auscultation: normal bowel sounds Rectal Exam - Female: deferred General: Yes bladder normal to palpation External Female Exam: No lesion Speculum Exam - Vagina: normal appearance of the vagina, normal palpation, normal vaginal discharge and not erythematous Speculum Exam - Cervix: normal appearance of the cervix and normal palpation Bimanual exam- vagina & uterus: normal bimanual exam, normal palpation, uterine size normal, bladder normal to palpation, consistency normal and normal palpation Bimanual Exam- Adnexa, other: normal adnexae, no masses and no tenderness Assessment & Plan Assessment & Plan (1) Well woman exam: Comment: MANUEL 2 in 2011 status post LEEP Code(s): Z01.419 - Encounter for gynecological examination (general) (routine) without abnormal findings Category: Medical Plan: Cotesting not indicated this year. Counseled the patient about the recommended dietary allowance of 1000 mg of Calcium & 600 IU of vitamin D. The patient was instructed to perform monthly self-breast exams and to schedule an annual exam in a year; All questions answered and the patient verbalized understanding. Instructed the patient to schedule annual exam in a year (2) Abnormal uterine bleeding (AUB): Code(s): N93.9 - Abnormal uterine and vaginal bleeding, unspecified Category: Medical Plan: GC and chlamydia, BV panel taken, CBC, TSH, prolactin, HCG, and pelvic ultrasound ordered. Discussed with the patient the different causes of abnormal bleeding including thyroid disorders, uterine and ovarian pathology, endometrial hyperplasia, carcinoma and other potential causes. Discussed with the patient the work up including CBC (to r/o anemia), TSH, pelvic Ultrasound, endometrial biopsy to r/o endometrial pathology. All questions answered and the patient verbalized understanding. Instructed the patient to schedule an appointment for an endometrial biopsy in 2 weeks. Orders: Orders Bacterial Vaginosis Panel Today Z01.419 - Encounter for gynecological examination (general) (routine) without abnormal findings CT NG by PCR Today Z01.419 - Encounter for gynecological examination (general) (routine) without abnormal findings Complete Blood Count no Diff Today N93.9 - Abnormal uterine and vaginal bleeding, unspecified TSH reflex Free T4 Today N93.9 - Abnormal uterine and vaginal bleeding, unspecified Prolactin Today N93.9 - Abnormal uterine and vaginal bleeding, unspecified HCG Quantitative Today N93.9 - Abnormal uterine and vaginal bleeding, unspecified US pelvic and transvaginal Today N93.9 - Abnormal uterine and vaginal bleeding, unspecified Coding Level of Care Code Est Pt Prev Care 18-39y(74495) Diagnoses Well woman exam Z01.419 Abnormal uterine bleeding (AUB) N93.9
== END 2023-10-17 13:32 | disposition home or self-care (01) ==
PROVIDERS: Visit Provider Obstetrics & Gynecology
DX: Z01.419 Encounter for gynecological examination (general) (routine) without abnormal findings (principal); N93.9 Abnormal uterine and vaginal bleeding, unspecified
CPT/HCPCS: 99395

== ENCOUNTER 2023-10-17 12:35 | Outpatient (REF) | payer MEDICARE, MEDICAID, SELFPAY ==
[2023-10-18 13:35] LABS: BV Int Neg Control Negative (Negative); BV Int Pos Control Positive (Positive)
== END 2023-10-17 12:36 | disposition home or self-care (01) ==
LOC: HO.LNP 12:35
PROVIDERS: Visit Provider Obstetrics & Gynecology
DX: Z13.89 Encounter for screening for other disorder (principal)
CPT/HCPCS: 87480; 87510; 87660

== ENCOUNTER 2023-10-17 13:44 | Outpatient (REF) | payer MEDICARE, MEDICAID, SELFPAY ==
[2023-10-17 14:13] LABS: Hematocrit 33.7 % (37.0-47.0); Hemoglobin 10.4 g/dl (12.0-16.0); Mean Corpuscular HGB Conc 30.9 g/dl (31.0-35.0); Mean Corpuscular Hemoglobin 23.7 pg (27.0-33.0); Mean Corpuscular Volume 76.9 fL (80.0-98.0); Mean Platelet Volume 11.5 fL (9.4-12.3); Platelet Count 426 X10*3/uL (160-400); Red Blood Count 4.38 X10*6/uL (4.20-5.50); Red Cell Distribution Width 17.6 % (11.0-16.0); White Blood Count 10.8 X10*3/uL (4.8-10.8)
[2023-10-17 15:18] LABS: HCG Quantitative < 2 mIU/mL; TSH reflex Free T4 1.01 uIU/mL (0.32-4.0)
[2023-10-17 15:44] LABS: CT PCR NOT DETECTED (Not Detect.); NG PCR NOT DETECTED (Not Detect.)
[2023-10-18 13:38] LABS: Prolactin 8.2 ng/mL
== END 2023-10-17 13:45 | disposition home or self-care (01) ==
LOC: HO.LAB 13:44
PROVIDERS: PCP Obstetrics & Gynecology; Visit Provider Obstetrics & Gynecology
DX: Z01.419 Encounter for gynecological examination (general) (routine) without abnormal findings (principal); N93.9 Abnormal uterine and vaginal bleeding, unspecified; Z20.2 Contact with and (suspected) exposure to infections with a predominantly sexual mode of transmission
CPT/HCPCS: 0353U; 84146; 84443; 84702; 85027; 87480; 87510; 87660; 99395

== ENCOUNTER 2023-10-26 11:13 | Outpatient (REF) | payer MEDICARE, MEDICAID, SELFPAY ==
--- NOTE | ~2023-10-26 | US_ITS ---
EXAMINATION: US PELVIS CLINICAL INFORMATION: Fibroids, last menstrual period October 05, 2023 COMPARISON: 12/08/2022 TECHNIQUE: Ultrasound of the pelvis is performed using both transabdominal and transvaginal transducers along with Doppler. Transvaginal imaging is performed due to inadequate visualization transabdominally. FINDINGS: The uterus is anteverted and measures 8.8 x 6.1 x 6.9 cm, volume 193.7 mL. Endometrial thickness is 10 mm. Small amount of free fluid. Right ovary measures 2.9 x 2.8 x 2.1 cm, volume 8.9 mL. Left ovary measures 3.1 x 2.5 x 2.5 cm with volume 10.1 mL. Bilateral ovaries are grossly unremarkable, although visualization is limited due to bowel gas. Multiple uterine fibroids with largest as follows: - 4.1 x 2.9 x 3.7 cm, previously 3.8 x 2.5 x 2.6 cm. - 3.3 x 2.7 x 2.8 cm, previously 2.4 x 2.0 x 2.5 cm. - 2.1 x 2.0 x 1.5 cm fibroid was not previously visualized. Additional smaller fibroids are redemonstrated. US/US pelvic and transvaginal IMPRESSION: Enlarged fibroid uterus. Endometrial thickness is 10 mm. Correlation with menstrual history recommended.
== END 2023-10-26 11:14 | disposition home or self-care (01) ==
LOC: HO.US 11:13
PROVIDERS: Visit Provider Obstetrics & Gynecology
DX: N93.9 Abnormal uterine and vaginal bleeding, unspecified (principal)
CPT/HCPCS: 76830; 76856

== ENCOUNTER 2023-11-16 07:51 | Emergency (ER) | payer MEDICARE, MEDICAID, SELFPAY ==
--- NOTE | ~2023-11-16 | CT_ITS ---
CT TEMPORAL BONES WITHOUT IV CONTRAST INDICATION: Left-sided pain. COMPARISON: None available. TECHNIQUE: Multidetector CT acquisitions of the temporal bones was obtained without IV contrast. This CT examination was performed using dose optimization techniques as appropriate, variously including the following: *Automated exposure control *Adjustment of mA and/or kV according to patient size (this includes techniques or standardized protocols for targeted exams where dose is matched to indication/reason for exam; i.e. extremities or head) *Use of iterative reconstruction technique FINDINGS: Small right greater than left mastoid effusions. The middle ear cavities are clear. There are no cellulitic changes within the periauricular soft tissues. No drainable fluid collections. Inner ear structures including the cochlea, vestibules, and semicircular canals are unremarkable. The semicircular canals are well covered with bone. Oval and round window niches are well aerated. The vestibular aqueducts are not enlarged. The internal carotid arteries are well covered with bone and the sigmoid plates are intact. Imaged paranasal sinuses remain well-aerated. Impacted right maxillary molar is partially imaged. CT/CT mastoid IMPRESSION: Small right greater than left mastoid effusions. The middle ear cavities are clear. There are no cellulitic changes within the periauricular soft tissues. No drainable fluid collections.
[2023-11-16 07:52] VITALS: BP 145/90; PULSE 83; RESP 18; TEMP 36.6; O2SAT 99; BMI 32.6
--- NOTE | 2023-11-16 08:57 | ED.EAR ---
HPI - Ear Problem General Chief complaint: Ear Problems Stated complaint: Bleeding L ear Time Seen by Provider: 11/16/23 08:15 Source: patient Mode of arrival: ambulatory Limitations: no limitations History of Present Illness ED Provider: PÉREZ LEMONS Narrative: 38 yo female with anxiety hx of ear infection in past completed augmentin and prednisone did not get better then saw ENT Oumar who prescribed prednisone again but she always feels ear pressure. She is not on allergy medications. She denies trauma all triggered by head cold back in April. She is planning on seeing different ENT. Comes in after noting pain in L ear yesterday then blood coming out of ear today - atraumatic. MD Complaint: ear pain and ear discharge Location: left ear Duration: constant Severity: moderate Relieving factors: nothing Exacerbating factors: palpation Discharge from ear: yes - bloody Associated symptoms ear: external ear tenderness Treatment prior to arrival: none Related Data Home Medications ?Medication ?Instructions ?Recorded ?Confirmed clonazepam 2 mg tablet 2 mg PO BID PRN 12/03/20 07/19/22 buspirone 15 mg tablet 15 mg PO TID 06/06/23 Previous Rx's ?Medication ?Instructions ?Recorded metronidazole 0.75 % (37.5 mg/5 1 appful vaginal BEDTIME 5 days 10/18/23 gram) vaginal gel #37.5 grams levofloxacin 750 mg tablet 750 mg PO DAILY 10 days #10 tabs 11/16/23 ofloxacin 0.3 % ear drops 10 drp otic (ear) left DAILY 7 11/16/23 days #5 mL Allergies Allergy/AdvReac Type Severity Reaction Status Date / Time oxycodone [Percocet] AdvReac Unknown increased Verified 11/16/23 07:54 anxiety, itching Review of Systems Review of Systems: Constitutional : No Fever, No Chills, No Fatigue ENT/Mouth : No sore throat, No Rhinorrhea, pos ear pain, pos ear discharge Eyes: No Eye Pain, No Swelling, No Redness Cardiovascular : No Chest Pain, No SOB, No Dyspnea on Exertion Respiratory : No Cough, No Sputum Gastrointestinal : No Nausea, No Vomiting, No Diarrhea, No abdominal Pain Genitourinary : No Dysuria, No Urinary Frequency, No Hematuria, Musculoskeletal : No joint pain, No Myalgias, No Joint Swelling Skin : No Skin Lesions, No rash Neuro : No Weakness, No Numbness, No Dizziness, no Headache All other systems reviewed and are negative PENDING SALE TO [facility] Past Medical History Attestation statement: The following information was validated with the patient. Source: old records reviewed Medical History Cyst of buttocks Left breast abscess Subcutaneous abscess Depression No known health problems Surgical History History of loop electrical excision procedure (LEEP) History of delivery Family History Family History Maternal Grandmother Stomach cancer Family/Other Thyroid cancer Social History Social History Household Members: Spouse and Children Housing: House Alcohol intake: never Patient Tobacco Use Status: Current someday Tobacco user Cigarettes Per Day: 5 Smoked in Last 30 Days: No Use of substances other than those prescribed or required for medical reasons: No Advance Directives: No Advance Directives Information Provided: Yes Patient : No Current occupational status: employed and unemployed Sexual orientation: Straight/Heterosexual Gender identity: Female Physical Exam Vital Signs: Vital Signs: Last Vital Signs Temp 98 F 11/16/23 10:30 Pulse 71 11/16/23 10:30 Resp 14 11/16/23 10:30 BP 129/76 11/16/23 10:30 Pulse Ox 98 11/16/23 10:30 O2 Del Method Room Air 11/16/23 10:30 BMI result Body Mass Index 32.6 Appearance: Alert. Oriented X3. No acute distress. Eyes: Pupils equal, round and reactive to light. ENT: Pharynx normal. L ear bloody discharge with yellow fluid behind TM and small perforation noted canal is also erythematous but not swollen Neck: Normal inspection. Neck supple. CVS: Normal heart rate and rhythm. Pulses normal. Respiratory: No respiratory distress. Breath sounds normal. Abdomen: Soft and nontender. Skin: Skin warm and dry. Normal skin color. Normal skin turgor. Extremities: No lower extremity edema. No calf ttp Neuro: Oriented X 3. No motor deficit. No sensory deficit. Medical Decision Making Medical Decision Making MDM Narrative: 38 yo female with PMH of otitis media and externa in setting of prior ear infection on exam has externa and otitis media with perforation will start on levofloxacin and cipro gtts given recurrence and pain will order mastoid ttp - she denies trauma to the ear. Differential Diagnosis Differential Diagnoses: The differential diagnosis associated with the presentation includes otitis media/externa and perforation Admission/Observation Consideration of admission/observation: Escalation of care including admission/observation considered not toxic stable for DC Independent Interpretation I performed an independent interpretation of an: CT Scan (right greater than left effusions no bony erosions) Radiology Impression Discussion of test interpretation with radiology: I have reviewed the radiologist's reading. External Record Review External record reviewed: Inpatient record Prescription Management I considered prescription management with: Antibiotic and Other Discharge Plan Discharge Clinical Impression: Otitis externa, Otitis media Patient Disposition: Home, Self-Care Instructions: Otitis Externa (ED), Otitis Externa (DC), Ruptured Eardrum (ED) Additional Instructions: no water in ears for 7 days finish antibiotics no strenuous jumping or activities while on activities and 5 days after completing follow up ENT as we discussed - [place] [facility] [phone] return for any worsening symptoms or concerns. you should get recheck of perforation (hole) in the ear in 1 week FINDINGS: Small right greater than left mastoid effusions. The middle ear cavities are clear. There are no cellulitic changes within the periauricular soft tissues. No drainable fluid collections. Inner ear structures including the cochlea, vestibules, and semicircular canals are unremarkable. The semicircular canals are well covered with bone. Oval and round window niches are well aerated. The vestibular aqueducts are not enlarged. The internal carotid arteries are well covered with bone and the sigmoid plates are intact. Imaged paranasal sinuses remain well-aerated. Impacted right maxillary molar is partially imaged. CT/CT mastoid IMPRESSION: Small right greater than left mastoid effusions. The middle ear cavities are clear. There are no cellulitic changes within the periauricular soft tissues. No drainable fluid collections. Prescriptions: New ofloxacin 0.3 % drops 10 drp otic (ear) left DAILY 7 Days Qty: 5 0RF levofloxacin 750 mg tablet 750 mg PO DAILY 10 Days Qty: 10 0RF No Action metronidazole 0.75 % (37.5mg/5 gram) gel 1 appful vaginal BEDTIME 5 Days Qty: 37.5 0RF buspirone 15 mg tablet 15 mg PO TID clonazepam 2 mg tablet 2 mg PO BID PRN Stand Alone Forms: Work/School Release Print Language: Polish
--- NOTE | 2023-11-16 10:24 | PC.NURSE ---
Left ear pain with bleeding yesterday, states improved since, no active bleeding or thinner use. Speaking full sentences. Awaits CT scan
[2023-11-16 10:30] VITALS: BP 129/76; PULSE 71; RESP 14; TEMP 36.6; O2SAT 98
[2023-11-16 12:23] VITALS: BP 129/76; PULSE 71; RESP 14; TEMP 36.6; O2SAT 98
== END 2023-11-16 12:30 | disposition home or self-care (01) ==
PROVIDERS: Emergency Provider Emergency Medicine
DX: H60.92 Unspecified otitis externa, left ear (principal); H66.92 Otitis media, unspecified, left ear; H72.92 Unspecified perforation of tympanic membrane, left ear; H92.02 Otalgia, left ear; F17.210 Nicotine dependence, cigarettes, uncomplicated
CPT/HCPCS: 70481; 99284

== ENCOUNTER 2023-11-29 10:37 | Outpatient (REF) | payer MEDICARE, MEDICAID, SELFPAY | END 2023-11-29 10:38 | disposition home or self-care (01) | LOC: HO.LNP 10:37 | PROVIDERS: Visit Provider Obstetrics & Gynecology | DX: N93.9 Abnormal uterine and vaginal bleeding, unspecified (principal) | CPT/HCPCS: 58100; 88305 ==

== ENCOUNTER 2023-11-29 10:37 | Outpatient (AMB) | payer MEDICARE, MEDICAID, SELFPAY ==
--- NOTE | 2023-11-29 10:41 | MHC.OFFVIS ---
Vital Signs 11/29/23 10:43 Height 5 ft 4 in Weight 189 lb 9.561 oz BMI 32.5 BP 124/74 Intake Visit Reasons: Endometrial biopsy Allergies oxycodone [Percocet] Adverse Reaction (Unknown, Verified 11/16/23 07:54) increased anxiety, itching HPI Comments Details: Presenting for [facility] Medical History Cyst of buttocks Left breast abscess Subcutaneous abscess Depression No known health problems Surgical History History of loop electrical excision procedure (LEEP) History of delivery Family History Maternal Grandmother Stomach cancer Family/Other Thyroid cancer Social History Household Members: Spouse and Children Housing: House Alcohol intake: never Patient Tobacco Use Status: Current someday Tobacco user Cigarettes Per Day: 5 Current occupational status: employed and unemployed Sexual orientation: Straight/Heterosexual Gender identity: Female Female Reproductive History Menstrual Age of Menarche: 11 Physical Exam Vital Signs: Last Vital Signs BP 124/74 11/29/23 10:43 BMI result Body Mass Index 32.5 Office Procedures Endometrial Biopsy Details: The patient was counseled regarding the indication and benefits of endometrial sampling to rule out endometrial pathology including not limited to endometrial hyperplasia or endometrial cancer and others; The alternatives (Either do nothing vs. hysteroscopy D&C) & the risks were discussed with the patient including but not limited: pain, uterine perforation, bleeding, infection, possible injury to bladder, bowel, ureter, possible need for blood transfusion with all its possible risks. The patient verbalized understanding all questions answered and signed consent. Urine test done in the office was negative The patient was placed into the dorsal lithotomy position; a speculum was inserted in the vagina. Using aseptic technique for the procedure, the cervix was cleansed with Betadine. The anterior lip of the cervix was grasped with a single tooth tenaculum. The uterus was sounded to 7 cm with a 4 mm Pipelle was used. Tissues samples were obtained and placed in formalin, in a patient labeled container and sent to the pathology department. At the end of the procedure, there was minimal bleeding noted The patient tolerated the procedure well and was discharged in good condition with the following instructions: Nothing in the vagina until the bleeding stops. No sex until the bleeding stops, to call if any of the following occurs: fever (>100.4), flu-like symptoms, abdominal pain, heavy bleeding, four smelling vaginal discharge. The patient was instructed to schedule a Follow up appointment in 2 weeks to discuss pathology results of the biopsy and treatment options. This note was generated with a voice recognition program. Some errors may have been overlooked during the review of this note. Sometimes these errors may affect the content or meaning of a given sentence. 00039-[id number] Biopsy Assessment & Plan Assessment & Plan (1) Abnormal uterine bleeding (AUB): Code(s): N93.9 - Abnormal uterine and vaginal bleeding, unspecified Category: Medical Plan: EMB done, see procedure note Orders: Orders AMB Endometrial Biopsy Today N93.9 - Abnormal uterine and vaginal bleeding, unspecified Surgical Today N93.9 - Abnormal uterine and vaginal bleeding, unspecified Coding Level of Care Code Procedure Only Diagnoses Abnormal uterine bleeding (AUB) N93.9 CPT Codes Endometrial Biopsy - CPT: 52747-Uqdkfjyrchm Biopsy ([id number])
[2023-11-29 10:43] VITALS: BP 124/74; BMI 32.5
== END 2023-11-29 11:05 | disposition home or self-care (01) ==
PROVIDERS: Visit Provider Obstetrics & Gynecology
DX: N93.9 Abnormal uterine and vaginal bleeding, unspecified (principal)
CPT/HCPCS: 58100

== ENCOUNTER 2024-01-16 12:11 | Outpatient (AMB) | payer MEDICARE, MEDICAID, SELFPAY ==
[2024-01-16 12:13] VITALS: BMI 32.5
--- NOTE | 2024-01-16 12:13 | MHC.OFFVIS ---
Vital Signs 01/16/24 12:13 Height 5 ft 4 in Weight 189 lb 9.561 oz BMI 32.5 Intake Visit Reasons: US/EMB follow up/DO NOT RS Veterinary Technician Assistant Required: No Information Interpreted: non-clinical & clinical Accompanied by: Self / Same As Patient Allergies oxycodone [Percocet] Adverse Reaction (Unknown, Verified 01/16/24 12:18) increased anxiety, itching HPI Comments Details: The patient is presenting for follow-up to discuss the results of her abnormal uterine bleeding workup and options of treatment. The following workup was done.: H&H= 10.4/33.7 TSH, prolactin, hCG, GC and chlamydia were negative. Endometrial biopsy pathology showed the following: Benign endometrium with extensive glandular and stromal breakdown (lytic endometrium) and abundant blood Co testing was done in 10/10 was negative. Pelvic ultrasound showed the following: The uterus is anteverted and measures 8.8 x 6.1 x 6.9 cm, volume 193.7 mL. Endometrial thickness is 10 mm. Small amount of free fluid. Right ovary measures 2.9 x 2.8 x 2.1 cm, volume 8.9 mL. Left ovary measures 3.1 x 2.5 x 2.5 cm with volume 10.1 mL. Bilateral ovaries are grossly unremarkable, although visualization is limited due to bowel gas. Multiple uterine fibroids with largest as follows: - 4.1 x 2.9 x 3.7 cm, previously 3.8 x 2.5 x 2.6 cm. - 3.3 x 2.7 x 2.8 cm, previously 2.4 x 2.0 x 2.5 cm. - 2.1 x 2.0 x 1.5 cm fibroid was not previously visualized. Additional smaller fibroids are redemonstrated. [facility] Medical History Cyst of buttocks Left breast abscess Subcutaneous abscess Depression No known health problems Surgical History History of loop electrical excision procedure (LEEP) History of delivery Family History Maternal Grandmother Stomach cancer Family/Other Thyroid cancer Social History Household Members: Spouse and Children Housing: House Alcohol intake: never Patient Tobacco Use Status: Current someday Tobacco user Cigarettes Per Day: 5 Current occupational status: employed and unemployed Sexual orientation: Straight/Heterosexual Gender identity: Female Female Reproductive History Menstrual Age of Menarche: 11 Review of Systems Const All systems reviewed & are unremarkable except as noted in HPI and below Reports as per HPI and Reports no additional complaints GI Reports no additional complaints Reports no additional complaints Physical Exam Vital Signs: BMI result Body Mass Index 32.5 Assessment & Plan Assessment & Plan (1) Abnormal uterine bleeding (AUB): Code(s): N93.9 - Abnormal uterine and vaginal bleeding, unspecified Category: Medical Plan: Discussed with the patient the results of the work up done and options of treatment including Lysteda, control pills, Mirena IUD, endometrial ablation and hysterectomy. All pros, cons, risks and benefits if each option was discussed with the patient and the patient decided to go ahead with Mirena IUD so a more detailed discussion about it was conducted including mechanism of action, risks (uterine perforation, infection, injury to bladder, bowel, displacement, and others) benefits (hypo menorrhea, amenorrhea, ...). GC/CT were taken and the patient was instructed to schedule Mirena IUD insertion on day 1-5 of next cycle . All questions answered, the patient verbalized understanding (2) Uterine myoma: Code(s): D25.9 - Leiomyoma of uterus, unspecified Category: Medical Plan: Screening mammogram ordered for 06/12. Discussed with the patient the findings on pelvic ultrasound & the risk of myosarcoma; discussed with the patient the options of treatment including expectant management versus hysterectomy; the pros and cons, risks benefits of each approach were discussed with the patient including the fact that in cases of myosarcoma, surgical treatment can lead to early diagnosis and positively affects the prognosis; after further discussion, the patient decided to proceed with expectant management. Will repeat pelvic ultrasound periodically. Instructions given to patient to call in case any of the following occurs: pressure symptoms, abnormal uterine bleeding, pelvic pain; and to schedule a six-month ultrasound and a follow-up appointment . All questions answered, the patient verbalized understanding and agreed with the plan . Orders: Orders MM tomosynthesis screening BI 5 Months Z12.31 - Encounter for screening mammogram for malignant neoplasm of breast US pelvic and transvaginal 6 Months D25.9 - Leiomyoma of uterus, unspecified Coding Level of Care Code Est Pt Level 3 (62701) Diagnoses Abnormal uterine bleeding (AUB) N93.9 Uterine myoma D25.9
== END 2024-01-16 12:35 | disposition home or self-care (01) ==
LOC: HO.HWS 12:11
PROVIDERS: Visit Provider Obstetrics & Gynecology
DX: N93.9 Abnormal uterine and vaginal bleeding, unspecified (principal); D25.9 Leiomyoma of uterus, unspecified
CPT/HCPCS: 99213

== ENCOUNTER → 2024-01-16 12:11 | Outpatient (BNVA) | payer MEDICARE, MEDICAID, SELFPAY | PROVIDERS: Visit Provider Obstetrics & Gynecology | DX: N93.9 Abnormal uterine and vaginal bleeding, unspecified (principal); D25.9 Leiomyoma of uterus, unspecified | CPT/HCPCS: 99212 ==

== ENCOUNTER 2024-06-18 14:16 | Outpatient (REF) | payer MEDICARE, MEDICAID, SELFPAY | END 2024-06-18 14:17 | disposition home or self-care (01) | LOC: HO.MAMMO 14:16 | PROVIDERS: Visit Provider Obstetrics & Gynecology | DX: Z12.31 Encounter for screening mammogram for malignant neoplasm of breast (principal) | CPT/HCPCS: 77063; 77067 ==

== ENCOUNTER → 2024-06-18 14:30 | Outpatient (BNV) | payer MEDICARE, MEDICAID, SELFPAY | PROVIDERS: Visit Provider Internal Medicine | DX: Z12.31 Encounter for screening mammogram for malignant neoplasm of breast (principal) | CPT/HCPCS: 77063; 77067 ==

== ENCOUNTER 2024-07-18 11:15 | Outpatient (REF) | payer MEDICARE, MEDICAID, SELFPAY ==
--- NOTE | ~2024-07-18 | US_ITS ---
EXAMINATION: US PELVIS CLINICAL INFORMATION: Leiomyomatous of the uterus. COMPARISON: October 26, 2023 TECHNIQUE: Ultrasound of the pelvis is performed using both transabdominal and transvaginal transducers along with Doppler. Transvaginal imaging is performed due to inadequate visualization transabdominally. FINDINGS: Uterus: The uterus is anteverted and measures 13 x 9 x 10 cm. There is an intrauterine ovoid shaped gestational sac which measures 1.5 cm without a pole or a jokes sac. The double wall endometrial thickness is not fully depicted on the exam. There is an heterogeneous nodular morphology of the uterus with multifocal different sizes intramural and questionable subserosal round lesions which very in size from 2-4 cm . Adnexa: Both ovaries are visualized. There is normal color flow to the adnexa. There is no ovarian torsion. There is no pelvic ascites or fluid collection. Right ovary measures 3 x 2 x 2 cm. Volume is 6 cc Left ovary measures 3 x 2 x 2 cm. Volume is 8 cc. US/US pelvic and transvaginal IMPRESSION: Leiomyomata uteri. Probable early intrauterine gestational sac without gross sac or pole corresponding to 5 weeks and 3 days by ultrasound. Recommend correlation with serial chondrification beta-hCG. Follow-up as clinically indicated. No ovarian torsion. Electronically signed by: Sonu Gustafson MD 07/18/2024 12:56 PM EST
== END 2024-07-18 11:16 | disposition home or self-care (01) ==
LOC: HO.US 11:15
PROVIDERS: Visit Provider Obstetrics & Gynecology
DX: D25.9 Leiomyoma of uterus, unspecified (principal)
CPT/HCPCS: 76830; 76856

== ENCOUNTER → 2024-07-18 11:17 | Outpatient (BNV) | payer MEDICARE, MEDICAID, SELFPAY | PROVIDERS: Visit Provider Radiology Diagnostic Radiology | DX: D25.9 Leiomyoma of uterus, unspecified (principal) | CPT/HCPCS: 76830; 76856 ==

== ENCOUNTER 2024-07-19 10:47 | Outpatient (AMB) | payer MEDICARE, MEDICAID, SELFPAY ==
--- NOTE | 2024-07-19 10:48 | A.OFFVIS_ITS ---
Intake Visit Reasons: follow up u/s Director Of Healthcare Systems: Director Of Healthcare Systems Present (Bethanie) Accompanied by: Friend Allergies oxycodone [Percocet] Adverse Reaction (Unknown, Verified 07/19/24 10:49) increased anxiety, itching HPI Comments Details: Presenting for ultrasound follow-up . Pelvic ultrasound done on 07/18/2024 showed the following: Uterus: The uterus is anteverted and measures 13 x 9 x 10 cm. There is an intrauterine ovoid shaped gestational sac which measures 1.5 cm without a pole or a jokes sac. The double wall endometrial thickness is not fully depicted on the exam. There is an heterogeneous nodular morphology of the uterus with multifocal different sizes intramural and questionable subserosal round lesions which very in size from 2-4 cm . Adnexa: Both ovaries are visualized. There is normal color flow to the adnexa. There is no ovarian torsion. There is no pelvic ascites or fluid collection. Right ovary measures 3 x 2 x 2 cm. Volume is 6 cc Left ovary measures 3 x 2 x 2 cm. Volume is 8 cc. Blood type O pos [facility] Medical History Cyst of buttocks Left breast abscess Subcutaneous abscess Depression No known health problems Surgical History History of loop electrical excision procedure (LEEP) History of delivery Family History Maternal Grandmother Stomach cancer Family/Other Thyroid cancer Social History Household Members: Spouse and Children Housing: House Alcohol intake: never Patient Tobacco Use Status: Current someday Tobacco user Cigarettes Per Day: 5 Current occupational status: employed and unemployed Sexual orientation: Straight/Heterosexual Gender identity: Female Female Reproductive History Menstrual Age of Menarche: 11 Review of Systems Const All systems reviewed & are unremarkable except as noted in HPI and below Physical Exam General: Yes no CVA tenderness External Female Exam: normal external appearance and normal appearance of the urethra Speculum Exam - Vagina: normal appearance of the vagina, normal palpation, no lesions and no masses Speculum Exam - Cervix: normal appearance of the cervix, normal palpation, no lesions, no masses and nontender Bimanual exam- vagina & uterus: normal bimanual exam, normal palpation, uterine size normal, normal palpation, uterine shape normal, No Cervical tenderness present and non-tender Bimanual Exam- Adnexa, other: normal adnexae Back/Spine/Pelvis Back: no CVA tenderness Assessment & Plan Assessment & Plan (1) : Comment: First-trimester spotting Previous Code(s): Z34.90 - Encounter for supervision of normal , unspecified, unspecified trimester Category: Medical Plan: GC/CT taken, hCG quantitative and repeat in 48 hours ordered, SAB/ectopic warnings given the patient, instructions given to patient to call or go to emergency room in case of pelvic pain and or vaginal bleeding. Repeat ultrasound in 2 weeks to confirm viability vitamin 1 tablet p.o. q.d. Instructions given the patient to schedule an ultrasound and a 2 week follow-up appointment. All questions answered, the patient verbalized understand (2) Uterine myoma: Code(s): D25.9 - Leiomyoma of uterus, unspecified Category: Medical Plan: Discussed with the patient the finding of myoma the effect of on myoma and of myoma on were discussed with the patient. Questions answered, the patient verbalized understanding Orders: Orders HCG Quantitative Today Z34.90 - Encounter for supervision of normal , unspecified, unspecified trimester HCG Quantitative 07/21/24 Z34.90 - Encounter for supervision of normal , unspecified, unspecified trimester US OB pelvic and transvaginal 2 Weeks Z34.90 - Encounter for supervision of normal , unspecified, unspecified trimester Coding Level of Care Code Est Pt Level 3 (90388) Diagnoses Z34. Uterine myoma D25.9
== END 2024-07-19 11:12 | disposition home or self-care (01) ==
PROVIDERS: Visit Provider Obstetrics & Gynecology
DX: Z34.90 Encounter for supervision of normal pregnancy, unspecified, unspecified trimester (principal); D25.9 Leiomyoma of uterus, unspecified
CPT/HCPCS: 99213

== ENCOUNTER 2024-07-19 10:47 | Outpatient (REF) | payer MEDICARE, MEDICAID, SELFPAY ==
[2024-07-19 12:42] LABS: HCG Quantitative 7150 mIU/mL
[2024-07-20 05:27] LABS: CT PCR NOT DETECTED (Not Detect.); NG PCR NOT DETECTED (Not Detect.)
== END 2024-07-19 10:48 | disposition home or self-care (01) ==
LOC: HO.LAB 10:47
PROVIDERS: Visit Provider Obstetrics & Gynecology
DX: O09.529 Supervision of elderly multigravida, unspecified trimester (principal); O26.859 Spotting complicating pregnancy, unspecified trimester; O34.219 Maternal care for unspecified type scar from previous cesarean delivery; O34.10 Maternal care for benign tumor of corpus uteri, unspecified trimester; D25.9 Leiomyoma of uterus, unspecified; Z3A.00 Weeks of gestation of pregnancy not specified
CPT/HCPCS: 36415; 84702; 87491; 87591; 99212

== ENCOUNTER 2024-07-19 13:00 | Outpatient (REF) | payer MEDICARE, MEDICAID, SELFPAY | END 2024-07-19 13:01 | disposition home or self-care (01) | LOC: HO.LNP 13:00 | PROVIDERS: Visit Provider Obstetrics & Gynecology | DX: Z13.89 Encounter for screening for other disorder (principal) ==

== ENCOUNTER 2024-07-24 13:24 | Outpatient (REF) | payer MEDICARE, MEDICAID, SELFPAY ==
[2024-07-24 13:58] LABS: HCG Quantitative 644 mIU/mL
== END 2024-07-24 13:25 | disposition home or self-care (01) ==
LOC: HO.LAB 13:24
PROVIDERS: Visit Provider Obstetrics & Gynecology
DX: O03.9 Complete or unspecified spontaneous abortion without complication (principal)
CPT/HCPCS: 36415; 84702; 99212

== ENCOUNTER 2024-07-24 14:26 | Outpatient (AMB) | payer MEDICARE, MEDICAID, SELFPAY ==
--- NOTE | 2024-07-24 14:28 | MHC.OFFVIS ---
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 No other associated symptom HCG on 07/19 was 7150 dropped to 644 today Blood type O positive GC/CT were negative PFSH Medical History Cyst of buttocks Left breast abscess Subcutaneous abscess Depression No known health problems Surgical History History of loop electrical excision procedure (LEEP) History of delivery Family History Maternal Grandmother Stomach cancer Family/Other Thyroid cancer Social History Household Members: Spouse and Children Housing: House Alcohol intake: never Patient Tobacco Use Status: Current someday Tobacco user Cigarettes Per Day: 5 Current occupational status: employed and unemployed Sexual orientation: Straight/Heterosexual Gender identity: Female Female Reproductive History Menstrual Age of Menarche: 11 Review of Systems Const All systems reviewed & are unremarkable except as noted in HPI and below Physical Exam General: Yes no CVA tenderness External Female Exam: normal external appearance and normal appearance of the urethra Speculum Exam - Vagina: normal appearance of the vagina, normal palpation, no lesions and no masses Speculum Exam - Cervix: normal appearance of the cervix, normal palpation, no lesions, no masses, nontender and Other cervical findings present (No evidence of active vaginal bleeding) Bimanual exam- vagina & uterus: normal bimanual exam, normal palpation, uterine size normal, normal palpation, uterine shape normal, No Cervical tenderness present and non-tender Bimanual Exam- Adnexa, other: normal adnexae Back/Spine/Pelvis Back: no CVA tenderness Assessment & Plan Assessment & Plan (1) Complete : Code(s): O03.9 - Complete or unspecified spontaneous without complication Category: Medical Plan: Discussed with the patient the findings signs and symptoms of incomplete , instructions given the patient to call in case of recurrence of pelvic cramping and or bleeding, fever over 100.4. Otherwise follow-up in 2 days for re-evaluation, will repeat hCG prior to the visit. The patient was instructed to stay NPO after midnight prior to the visit. All questions answered, the patient verbalized understanding Orders: Orders HCG Quantitative 2 Days O03.9 - Complete or unspecified spontaneous without complication Coding Level of Care Code Est Pt Level 3 (70393) Diagnoses Complete O03.9
== END 2024-07-24 15:44 | disposition home or self-care (01) ==
PROVIDERS: Visit Provider Obstetrics & Gynecology
DX: O03.9 Complete or unspecified spontaneous abortion without complication (principal)
CPT/HCPCS: 99213

== ENCOUNTER 2024-07-26 06:43 | Outpatient (REF) | payer MEDICARE, MEDICAID, SELFPAY ==
[2024-07-26 07:26] LABS: HCG Quantitative 339 mIU/mL
== END 2024-07-26 06:44 | disposition home or self-care (01) ==
LOC: HO.LAB 06:43
PROVIDERS: Visit Provider Obstetrics & Gynecology
DX: O03.9 Complete or unspecified spontaneous abortion without complication (principal)
CPT/HCPCS: 36415; 84702; 99212

== ENCOUNTER 2024-08-02 14:12 | Outpatient (REF) | payer MEDICARE, MEDICAID, SELFPAY ==
[2024-08-02 14:59] LABS: HCG Quantitative 95 mIU/mL
== END 2024-08-02 14:13 | disposition home or self-care (01) ==
LOC: HO.LAB 14:12
PROVIDERS: Visit Provider Obstetrics & Gynecology
DX: O03.9 Complete or unspecified spontaneous abortion without complication (principal)
CPT/HCPCS: 36415; 84702

== ENCOUNTER 2024-09-12 08:34 | Emergency (ER) | payer MEDICARE, MEDICAID, SELFPAY ==
--- NOTE | ~2024-09-12 | XR_ITS ---
EXAMINATION: XR LUMBAR SPINE 2-3 VIEWS HISTORY: right low back pain COMPARISON: Comparison is made with the prior examination dated 05/01/2007. FINDINGS: AP, lateral, and coned down views of the lumbar spine are submitted. Osseous mineralization is normal. Five nonrib-bearing lumbar vertebral bodies are identified, maintaining normal height and alignment without evidence of fracture or spondylolisthesis. There is minimal spurring involving the superior endplates of L4 and L5. The intervertebral disc spaces are preserved. The posterior elements are intact. The visualized paraspinal soft tissues are unremarkable. XR/XR lumbar spine 2-3V IMPRESSION: Minimal degenerative changes as described. Electronically signed by: Willie Soliman MD 09/12/2024 09:40 AM EDT
[2024-09-12 08:40] VITALS: BP 142/72; PULSE 72; RESP 19; TEMP 36.6; O2SAT 98; BMI 30.9
[2024-09-12 09:07] LABS: Appearance Urine Cloudy; Color Urine Dark Yellow; Glucose Urine UA Negative (Negative); Leukocyte Esterase Urine Negative (Negative); Nitrite Urine Negative (Negative); PH 5.5 (5.0-9.0); Specific Gravity - Urine >= 1.030 (1.005-1.025); Urine Blood Negative (Negative); Urine Ketones Trace mg/dL (Negative); Urine Protein Trace mg/dL (Neg-Trace)
[2024-09-12 09:12] LABS: UPreg QC Valid YES; Urine Pregnancy NEGATIVE (NEGATIVE)
--- NOTE | 2024-09-12 09:12 | ED.GENADULT ---
HPI - General Adult General Chief complaint: Back Pain/Injury Stated complaint: lower r back/hip pain Time Seen by Provider: 09/12/24 09:07 Source: patient Mode of arrival: ambulatory Limitations: no limitations History of Present Illness ED Provider: KAELA RAHMAN PA-C HPI narrative: 39 year old female with pmhx significant for depression and AUB presents to the ED today for evaluation of right lower back/hip pain x1 month. She states pain initially began while shoveling snow back in July. Pain has been intermittent since onset, now becoming more constant. Pain originated in the right lower back, now radiating to right buttock/hip and down the outside of the right thigh. Admits to hx of sciatic pain as a child which eventually resolved. She has been taking motrin/ tylenol at home which were initially helping however no long provides relief. Denies new injury/ trauma. Denies hx of spinal surgeries. Denies hx of IVDU. Denies saddle anesthesia, bowel/ bladder incontinence or retention, numbness/tingling/weakness of the LEs, dysuria, hematuria. Related Data Home Medications ?Medication ?Instructions ?Recorded ?Confirmed clonazepam 2 mg tablet 2 mg PO BID PRN 12/03/20 07/19/22 buspirone 15 mg tablet 15 mg PO TID 06/06/23 Previous Rx's ?Medication ?Instructions ?Recorded levofloxacin 750 mg tablet 750 mg PO DAILY 10 days #10 tabs 11/16/23 ofloxacin 0.3 % ear drops 10 drp otic (ear) left DAILY 7 11/16/23 days #5 mL lidocaine 5 % topical patch 1 patch topical DAILY #15 ea 09/12/24 (Lidoderm) prednisone 20 mg tablet 60 mg (3 x 20 mg) PO DAILY 5 days 09/12/24 #15 tabs Allergies Allergy/AdvReac Type Severity Reaction Status Date / Time oxycodone [Percocet] AdvReac Unknown increased Verified 09/12/24 08:42 anxiety, itching Review of Systems Review of Systems: Constitutional: No fever, chills, fatigue, night sweats, weight changes ENT/Mouth: No ear pain, hearing loss, nasal congestion, sinus pain, rhinorrhea, sore throat Eyes: No eye pain, swelling, redness, vision changes, discharge Cardio: No chest pain, palpitations, [place], orthopnea, peripheral edema Pulm: No SOB, cough, sputum, wheezing, dyspnea, hemoptysis GI: No nausea, vomiting, hematemesis, abdominal pain, diarrhea, constipation, hematochezia, melena : No irregular bleeding, dysuria, frequency, urgency, hesitancy, hematuria, flank pain, urinary flow changes, urinary incontinence or retention MSK: +back pain, No neck pain, joint pain, myalgias Skin: No lesions, rashes Neuro: No weakness, numbness, paresthesias, LOC, dizziness, headache All other systems reviewed and are negative. [facility] Past Medical History Attestation statement: The following information was validated with the patient. Source: old records reviewed and nursing notes reviewed Medical History Cyst of buttocks Left breast abscess Subcutaneous abscess Depression No known health problems Surgical History History of loop electrical excision procedure (LEEP) History of delivery Family History Family History Maternal Grandmother Stomach cancer Family/Other Thyroid cancer Social History Social History Household Members: Spouse and Children Housing: House Alcohol intake: never Patient Tobacco Use Status: Current someday Tobacco user Cigarettes Per Day: 5 Smoked in Last 30 Days: Yes Use of substances other than those prescribed or required for medical reasons: No Advance Directives: No Advance Directives Information Provided: Yes Do you have a plan to hurt others: No Plan Patient : No Current occupational status: employed and unemployed Sexual orientation: Straight/Heterosexual Gender identity: Female Physical Exam ED Vital Signs: Vital Signs - 24 hr 09/12/24 08:40 Temperature 98 F Pulse Rate 72 Respiratory Rate 19 Blood Pressure 142/72 H Pulse Oximetry 98 Oxygen Delivery Method Room Air BMI result Body Mass Index 30.9 Const General: cooperative, healthy appearing, comfortable, no acute distress, alert, awake and Physically active Orientation/consciousness: patient oriented x3 HENMT Head: Yes normal to inspection, Yes normocephalic and Yes atraumatic Eyes General: appearance normal, both eyes and all related structures Pupils: Equal, round and reactive pupils present EOM: EOMs intact bilaterally Neck Neck: Yes normal visual inspection, Yes full ROM and Yes no meningeal signs Resp Effort & Inspection: normal respiratory effort Auscultation: clear to auscultation bilaterally Cardio Rate: regular rate Rhythm: regular rhythm GI Inspection: Yes normal to inspection Palpation (GI): Soft to palpation and nontender General: Yes no CVA tenderness Back/Spine/Pelvis Other: No midline spinous tenderness or step-off deformity. No paraspinal muscle tenderness to palpation. She has tenderness over the right buttock/hip region without palpable deformity or crepitus. No overlying erythema. Full ROM intact to right hip. positive straight leg raise on right. Ambulating with steady gait. Back: no CVA tenderness Skin General skin exam: no rashes or lesions noted Neuro Other: Strength 5/5 intact throughout.?No saddle anesthesia.?Sensation intact to light touch.?Neurovascular intact distally.? General: patient oriented x3, gait normal and no meningeal signs Cranial nerves: Yes Equal, round and reactive pupils present Gait exam (Neuro): Normal gait present Extrem Other: no calf tenderness. Course Course Course Narrative: 1013 -- urine negative for infection/ . xr lumbar spine showing chronic degenerative changes, no acute fracture or subluxation. physical exam is consistent with sciatica pain. will send prednisone + lido patches to pharmacy. provided low back exercises to perform at home. advised to f/u with PCP for PT referral. treated with lido patch in ED. Patient has remained stable throughout ED visit today. Discussed worrisome signs and symptoms and when to return to the ED. All questions answered at this time. Patient is agreeable with disposition and stable for discharge. Medical Decision Making Medical Decision Making [facility] Narrative: 39 year old female with pmhx significant for depression and AUB presents to the ED today for evaluation of right lower back/hip pain x1 month. patient is hypertensive, vitals are otherwise wnl. she is nontoxic appearing and in NAD. On exam, there is no midline spinous tenderness or step-off deformity. No paraspinal muscle tenderness to palpation. She has tenderness over the right buttock/hip region without palpable deformity or crepitus. No overlying erythema. Full ROM intact to right hip. positive straight leg raise on right. Ambulating with steady gait. no calf tenderness. Strength 5/5 intact throughout.?No saddle anesthesia.?Sensation intact to light touch.?Neurovascular intact distally. Concern for MSK sprain/strain, fracture, subluxation, disc herniation, sciatica. Unlikely cord compression, cauda equina, Guillain-[place], epidural abscess. UA ordered from triage. Plan for imaging, pain contol, and re-evaluation. Differential Diagnosis Differential Diagnoses: The differential diagnosis associated with the presentation includes as above Admission/Observation Not indicated. Lab Data MDM Lab Attestation statement: I reviewed the patient's lab results. as above. Labs: Lab Results 09/12/24 Range/Units 08:57 Urine Color Dark Yellow Urine Appearance Cloudy Urine pH 5.5 (5.0-9.0) Ur Specific [place] >= 1.030 H (1.005-1.025) Urine Protein Trace (Neg-Trace) mg/dL Urine Glucose (UA) Negative (Negative) mg/dL Urine Ketones Trace (Negative) mg/dL Urine Blood Negative (Negative) Urine Nitrite Negative (Negative) Ur Leukocyte Esterase Negative (Negative) Urine Test NEGATIVE (NEGATIVE) Independent Interpretation I performed an independent interpretation of an: Plain X-Ray Interpretation: xr lumbar spine without fracture Radiology Impression Discussion of test interpretation with radiology: I have reviewed the radiologist's reading. Radiologist Impression: Procedure(s): XR lumbar spine 2-3V Accession Number(s): [id number] cc: Loyda Jade PA-C; Kaela Rahman~ EXAMINATION: XR LUMBAR SPINE 2-3 VIEWS HISTORY: right low back pain COMPARISON: Comparison is made with the prior examination dated 05/01/2007. FINDINGS: AP, lateral, and coned down views of the lumbar spine are submitted. Osseous mineralization is normal. Five nonrib-bearing lumbar vertebral bodies are identified, maintaining normal height and alignment without evidence of fracture or spondylolisthesis. There is minimal spurring involving the superior endplates of L4 and L5. The intervertebral disc spaces are preserved. The posterior elements are intact. The visualized paraspinal soft tissues are unremarkable. XR/XR lumbar spine 2-3V IMPRESSION: Minimal degenerative changes as described. Electronically signed by: Willie Soliman MD 09/12/2024 09:40 AM EDT External Record Review External record reviewed: Inpatient record Prescription Management I considered prescription management with: Pain Medication and Other (prednisone, lido patch) Social Determinants Patient?s care significantly limited by Social Determinants of Health including: Other Social Determinant of Health Critical Care Time Critical Care Time Critical Care Time: No Discharge Plan Discharge Clinical Impression: Sciatica Patient Disposition: Home, Self-Care Instructions: Sciatica (ED), Lower Back Exercises (ED) Additional Instructions: You were seen in the ED today for right lower back pain. Your urine does not demonstrate infection/ . The xray of your low back shows chronic degenerative changes without any fractures. Your exam is consistent with sciatic pain. see home care instructions. I have attached some low back exercises that you can do at home however you will likely require physical therapy for definitive treatment. I am sending lidocaine patches (numbing patches) and a 5 day course of prednisone. You may continue taking tylenol/ motrin at home as needed. Please follow up with your primary provider. Return with any new or worsening symptoms. In the case of an emergency call 911. Prescriptions: New prednisone 20 mg tablet 60 mg PO DAILY 5 Days Qty: 15 0RF lidocaine [Lidoderm] 5 % adhesive patch,medicated 1 patch topical DAILY Qty: 15 0RF Rx Instructions: leave on most painful area for up to 12 hrs No Action ofloxacin 0.3 % drops 10 drp otic (ear) left DAILY 7 Days Qty: 5 0RF levofloxacin 750 mg tablet 750 mg PO DAILY 10 Days Qty: 10 0RF buspirone 15 mg tablet 15 mg PO TID clonazepam 2 mg tablet 2 mg PO BID PRN Referrals: Loyda Jade PA-C [Primary Care Provider] - Stand Alone Forms: Work/School Release Print Language: Ukrainian
[2024-09-12 10:15] VITALS: BP 141/71; PULSE 61; RESP 13; TEMP 37.5; O2SAT 99
[2024-09-12] MEDS: Lidocaine 4 % Patch ADH..PATCH 1 PATCH TRANSDERMA (10:18)
[2024-09-12 10:23] VITALS: BP 141/71; PULSE 61; RESP 13; TEMP 37.5; O2SAT 99
== END 2024-09-12 10:23 | disposition home or self-care (01) ==
PROVIDERS: Emergency Provider Emergency Medicine
DX: M54.41 Lumbago with sciatica, right side (principal)
CPT/HCPCS: 72100; 81003; 81025; 99283; 99284

== ENCOUNTER → 2024-09-12 09:13 | Outpatient (BNV) | payer MEDICARE, MEDICAID, SELFPAY | PROVIDERS: Emergency Provider Emergency Medicine; Visit Provider Radiology Diagnostic Radiology | DX: M54.50 Low back pain, unspecified (principal) | CPT/HCPCS: 72100 ==

== ENCOUNTER 2024-09-14 17:14 | Emergency (ER) | payer MEDICARE, MEDICAID, SELFPAY ==
--- NOTE | ~2024-09-14 | CT_ITS ---
CLINICAL HISTORY: R buttock, lateral thigh pain R O lumbar disc CT lumbar spine with contrast Comparison: None Findings: Normal vertebral body alignment. No acute fractures or dislocations. Osteopenia. Focal spondylosis at L5-S1 with degenerative disc disease, vacuum phenomena and posterior disc osteophyte complex. Mild disc bulge at L3-L4. Disc bulge with superimposed central disc extrusion at L4-L5 with inferior migration measuring 1.9 cm in craniocaudal dimension, and moderate spinal canal narrowing. Disc bulge at L5-S1, eccentric to the right, with mild spinal canal narrowing. Multilevel foraminal stenoses bilaterally, for example moderate to severe L5-S1. Normal appendix. Partially imaged multifibroid uterus. IMPRESSION: No acute lumbar spine fracture. Additional findings described, please see above. This document has been electronically signed by: Jose Cummins MD on 09/14/2024 23:14:25
--- NOTE | ~2024-09-14 | XR_ITS ---
CLINICAL HISTORY: pain AP pelvis, Two views of the right hip. COMPARISON: None FINDINGS: Pelvic ring appears intact. Pelvic phleboliths present. Visualized lower lumbar spine is unremarkable. Visualized portions of the contralateral left hip appear intact. Right hip: Visualized portions of the proximal right femur appears intact. No trabecular disruption or cortical discontinuity. Femoral head is appropriately seated in the acetabulum. IMPRESSION: 1. No radiographic evidence of acute injury to the pelvis and right hip. This document has been electronically signed by: Vincent Panda MD on 09/14/2024 18:21:36
[2024-09-14 17:44] VITALS: BP 130/64; PULSE 81; RESP 18; TEMP 37.3; O2SAT 99; BMI 31.1
--- NOTE | 2024-09-14 17:53 | ED.GENADULT ---
HPI - General Adult General Chief complaint: General Medical Stated complaint: Hip pain, fever Time Seen by Provider: 09/14/24 20:50 Source: patient and other (Friend) Mode of arrival: ambulatory Limitations: no limitations History of Present Illness ED Provider: Dr. Gio Diaz HPI narrative: 39-year-old female with a history of depression, complex ovarian cyst, cyst on buttocks and left breast in the past who presents emergency department for evaluation of right lower back buttocks and right leg pain times months. She states she 1st started to after she had a miscarriage 07/21/2024. She states that in the beginning of July she also shoveling snow and believes that she may have injured her lower back. She states that since that time she has been having intermittent right lower back pain that radiates to her buttocks and down the lateral aspect of her leg to her knee. She states over the last 2-3 weeks the pain has become severe and over the last 2 days the pain is 9/10. She states the pain is a severe, dull ache which is worse with sitting and lying down and seems to be relieved if she stands up. She was not had any numbness, weakness, loss of bowel or bladder control. She denied fever or chills. She denied injection drug use. She also states that the pain is also in her right hip and she was concerned that she might have an infection of her right hip. Related Data Home Medications ?Medication ?Instructions ?Recorded ?Confirmed clonazepam 2 mg tablet 2 mg PO BID PRN 12/03/20 07/19/22 buspirone 15 mg tablet 15 mg PO TID 06/06/23 Previous Rx's ?Medication ?Instructions ?Recorded levofloxacin 750 mg tablet 750 mg PO DAILY 10 days #10 tabs 11/16/23 ofloxacin 0.3 % ear drops 10 drp otic (ear) left DAILY 7 11/16/23 days #5 mL lidocaine 5 % topical patch 1 patch topical DAILY #15 ea 09/12/24 (Lidoderm) prednisone 20 mg tablet 60 mg (3 x 20 mg) PO DAILY 5 days 09/12/24 #15 tabs cyclobenzaprine 10 mg tablet 10 mg PO TID PRN muscle spasm #20 09/15/24 tabs gabapentin 300 mg capsule 300 mg PO TID 3 weeks #63 caps 03/29/25 hydrocodone 5 mg-acetaminophen 300 1 tab PO Q4-6H PRN pain #14 tabs 09/15/24 mg tablet Allergies Allergy/AdvReac Type Severity Reaction Status Date / Time oxycodone [Percocet] AdvReac Unknown increased Verified 09/14/24 17:46 anxiety, itching PMFSH Past Medical History Medical History Cyst of buttocks Left breast abscess Subcutaneous abscess Depression No known health problems Surgical History History of loop electrical excision procedure (LEEP) History of delivery Family History Family History Maternal Grandmother Stomach cancer Family/Other Thyroid cancer Social History Social History Household Members: Spouse and Children Housing: House Alcohol intake: never Patient Tobacco Use Status: Current someday Tobacco user Cigarettes Per Day: 5 Advance Directives: No Advance Directives Information Provided: No Current occupational status: employed and unemployed Sexual orientation: Straight/Heterosexual Gender identity: Female Physical Exam ED Vital Signs: Vital Signs - 24 hr 09/14/24 17:44 09/14/24 20:52 09/14/24 21:35 Temperature 99.1 F 98.2 F 97.5 F Pulse Rate 81 69 61 Respiratory Rate 18 16 16 Blood Pressure 130/64 136/72 125/56 L Pulse Oximetry 99 97 98 Oxygen Delivery Method Room Air Room Air Room Air 09/14/24 23:25 09/15/24 01:11 Temperature 98.0 F 98.2 F Pulse Rate 66 72 Respiratory Rate 16 16 Blood Pressure 119/64 128/66 Pulse Oximetry 98 98 Oxygen Delivery Method Room Air Room Air BMI result Body Mass Index 31.1 vital signs are stable Exam: General: Awake, alert , anxious, in moderate distress secondary to her pain and anxiety Head: Normocephalic, atraumatic EENT: PERRL, Lids normal, sclera normal, conjunctiva normal, nose normal , ears normal, throat without erythema or exudates Neck: Supple, no adenopathy Lung: breath sounds symmetric, no wheezing, rales or rhonchi Chest: symmetric movement, nontender Heart: regular rate and rhythm, normal S1, S2 no murmurs or rubs Abdomen: soft, non-tender, nondistended, normal bowel sounds Back: tenderness palpation over her lumbar sacral vertebrae with no point tenderness, tenderness palpation of the right buttocks area with no erythema, lesions or increased warmth. Negative straight leg raise on the left, minimal pain with straight leg raise on the right. Extremities: no deformities, moves all extremities symmetrically, no pain with passive or active range of motion of the hip no tenderness palpation over the hip joint Neuro: Awake, alert, oriented, normal speech, cranial nerves intact, moves all extremities symmetrically , able to stand and has normal gait Psych: Pleasant, cooperative Course Course Course Narrative: RME, this is a rapid medical exam performed by Arnav Manzanares please refer to primary provider for complete H&P- 39-year-old female presents for evaluation of right hip pain. She reports that she has had pain for at least a month through a right hip, she has been seen by several providers most recently here 2 days ago and was diagnosed with sciatica. Since going home she developed worsening pain and a fever. She reports a fever was 101.4 earlier today. Denies any injuries, the patient indicates the area of her buttocks where most of her pain is. In triage her temp is 99.1?. Plan for labs including blood cultures and inflammatory markers, tick-borne illness panel, and an x-ray of the right hip. Medications Administered Discontinued Medications Generic Name Dose Route Start Last Admin Trade Name Freq PRN Reason Stop Dose Admin Cyclobenzaprine HCl 10 mg 09/14/24 22:25 09/14/24 23:01 Cyclobenzaprine Hcl 10 Mg Tablet PO 09/14/24 22:26 10 mg ONCE ONE Administration Iohexol 85 ml 09/14/24 22:46 09/14/24 22:47 Iohexol 350 Mg/Ml 100 Ml Infus..Btl IV 09/14/24 22:47 85 ml ONCE ONE Administration Morphine Sulfate 4 mg 09/14/24 22:25 09/14/24 23:31 Morphine Sulfate 4 Mg/Ml Cartridge IVPUSH 09/14/24 22:26 4 mg ONCE STA Administration Protocol Ondansetron HCl 4 mg 09/14/24 22:25 09/14/24 23:01 Ondansetron Hcl 4 Mg/2 Ml Vial IVPUSH 09/14/24 22:26 4 mg ONCE ONE Administration Medical Decision Making Medical Decision Making [facility] Narrative: 39-year-old female with a history of depression, complex ovarian cyst, cyst on buttocks and left breast in the past who presents emergency department for evaluation of right lower back buttocks and right leg pain times months. The pain 1st started to after she had a miscarriage 07/21/2024, exacerbating in July 2024 after shoveling snow when she believes that she may have injured her lower back. the pain is intermittent located in the right lower back pain that radiates to her buttocks and down the lateral aspect of her leg to her knee. The pain has been worse over the last 2-3 weeks the pain has become severe and over the last 2 days the pain is 9/10. Her pain is described as a severe, dull ache which is worse with sitting and lying down , relieved if she stands up. She denied numbness, weakness, loss of bowel or bladder control. She denied fever or chills, injection drug use. she also feels the pain in her right hip and she is concerned that she might have an infection of her right hip. vital signs were normal. Physical examination did reveal tenderness palpation over her lumbar sacral spine with no localizing point tenderness. Patient does have tenderness palpation over her right buttocks area with no significant erythema or lesions noted in this area. Patient has negative straight leg raise on the left and minimal pain with right straight leg raise. Her extremities are neurovascular intact no weakness Differential diagnosis: Includes but is not limited to lumbar/sacral musculoskeletal sprain / strain,septic, musculoskeletal sprain/ strain /arthritis of the right hip, septicarthritis of the hip, right-sided sciatica, degenerative joint disease, degenerative disc disease, cauda equinus syndrome Course: my independent interpretation patient's laboratory evaluation is as follows: WBC elevated 17,900-the patient just started prednisone and this may be the cause of the elevated WBC. H&H was normal. CMP was normal. Lipase was normal. ESR and CRP were normal at 7.0 in 0.11- this is encouraging and suggest that she does not have an infectious process as the cause of her pain. COVID-19, RSV and influenza were negative. x-ray of the right hip revealed no acute findings to explain The patient's pain. Review of the x-rays of the patient's lumbar spine from revealed minimal degenerative changes with minimal spurring involving the superior endplates of L4 on L5 with preserved intervertebral disc spaces. CT scan of the lumbar sacral spine with IV contrast revealed degenerative disc disease and is holding at L3-L4, L4-L5 and L5-S1 with the most significant finding being at L5-S1 with a bulging disc with a centric bulging to the right with minimal spinal canal narrowing and moderate to severe foraminal stenosis at L5-S1. At this time I suspect that the L5-S1 findings may explain the patient's buttocks pain and right lateral leg pain that radiates to her knee. The patient was treated with morphine 4 mg IV, ondansetron 4 mg IV and cyclobenzaprine 10 mg orally. The patient got minimal improvement of her pain however she does not want any more morphine at this time since she states that she does not like the way it makes her feel. S the patient states she has been able to take acetaminophen/ hydrocodone in the past therefore she was given a prescription for Vicodin 5/300 mg pills, 1 pill every 4-6 hours as needed for pain, Flexeril 10 mg 3 times a day as needed for pain and spasm and gabapentin 300 mg 3 times a day at for neuropathic pain. Patient was given printed and verbal instructions and discharged home. She was advised to follow-up with her PCP for physical therapy and for possible referral to neurosurgeon and MRI as an outpatient. Admission/Observation Consideration of admission/observation: Escalation of care including admission/observation considered ( Yes) Lab Data MDM Lab Attestation statement: I reviewed the patient's lab results. 09/14/24 18:31 09/14/24 18:31 Labs: Lab Results 09/14/24 09/14/24 09/14/24 Range/Units 05:41 18:29 18:31 WBC 17.9 H (4.8-10.8) X10*3/uL RBC 4.47 (4.20-5.50) X10*6/uL Hgb 12.0 (12.0-16.0) g/dl Hct 37.2 (37.0-47.0) % MCV 83.2 (80.0-98.0) fL MCH 26.8 L (27.0-33.0) pg MCHC 32.3 (31.0-35.0) g/dl RDW 18.8 H (11.0-16.0) % Plt Count 353 (160-400) X10*3/uL MPV 11.7 (9.4-12.3) fL Immature Gran % (Auto) 0.4 (0.0-0.4) % Neut % (Auto) 64.4 (45-73) % Lymph % (Auto) 27.8 (20-40) % [place] % (Auto) 6.3 (2-11) % Eos % (Auto) 0.7 (0-4) % Baso % (Auto) 0.4 (0-2) % Lymph # (Auto) 5.0 H (1.2-4.9) X10*3/uL [place] # (Auto) 1.1 (0.1-1.2) X10*3/uL Eos # (Auto) 0.1 (0.0-0.4) X10*3/uL Baso # (Auto) 0.1 (0.0-0.2) X10*3/uL Abs Immat Gran (auto) 0.07 H (0.00-0.03) X10*3/uL Absolute Neuts (auto) 11.5 H (2.0-8.3) x10*3/uL Absolute Nucleated RBC 0.000 (0.0-0.012) X10*3/uL Nucleated RBC % (auto) 0.0 (0.0-0.2) /100WBC ESR 7 (0-20) MM/HR Sodium 143 (135-145) mmol/L Potassium 3.4 (3.3-5.1) mmol/L Chloride 112 H (96-108) mmol/L Carbon Dioxide 25 (22-29) mmol/L Anion Gap 9 L (12-20) BUN 13 (9-16) mg/dL Creatinine 0.79 (0.5-1.4) mg/dL Estim Creat Clear Calc 98.1 Estimated GFR > 60 Random Glucose 103 (60-115) mg/dL Lactic Acid 0.9 (0.5-2.0) mmol/L Calcium 9.8 (8.4-10.2) mg/dL Magnesium 1.9 (1.6-2.6) mg/dL Total Bilirubin 0.3 (0.0-1.0) mg/dL AST 12 (5-31) U/L ALT 10 (0-31) U/L Alkaline Phosphatase 57 (39-117) U/L C-Reactive Protein 0.11 (< or = 0.50) mg/dL Total Protein 7.6 (6.5-8.0) g/dL Albumin 4.8 (3.5-5.0) g/dL Lipase 20 (8-78) U/L Beta HCG, Quant < 2 mIU/mL Urine Color Urine Appearance Urine pH (5.0-9.0) Ur Specific [place] (1.005-1.025) Urine Protein (Neg-Trace) mg/dL Urine Glucose (UA) (Negative) mg/dL Urine Ketones (Negative) mg/dL Urine Blood (Negative) Urine Nitrite (Negative) Ur Leukocyte Esterase (Negative) Urine RBC (0-2) /HPF Urine WBC (0-5) /HPF Ur Squamous Epith Cells (0-2) /HPF Urine Bacteria (None Seen) Hyaline Casts (0-2) /LPF Urine Opiates Screen Not Detected (Not Detect) Ur Buprenorphine Scrn Not Detected (Not Detect) ng/mL Ur Oxycodone Screen Not Detected (Not Detect) ng/mL Urine Methadone Screen Not Detected (Not Detect) ng/mL Urine Fentanyl Screen Not Detected (Not Detect) Ur Barbiturates Screen Not Detected (Not Detect) Ur Phencyclidine Scrn Not Detected (Not Detect) Ur Amphetamines Screen Not Detected (Not Detect) U Benzodiazepines Scrn POSITIVE H (Not Detect) Urine Cocaine Screen Not Detected (Not Detect) U Marijuana (THC) Screen Not Detected (Not Detect) Influenza Type A (PCR) (Negative) Influenza Type B (PCR) (Negative) RSV RNA Qual (PCR) (Negative) SARS-CoV-2 RNA (RT-PCR) (Negative) 09/14/24 09/14/24 Range/Units 18:33 21:38 WBC (4.8-10.8) X10*3/uL RBC (4.20-5.50) X10*6/uL Hgb (12.0-16.0) g/dl Hct (37.0-47.0) % MCV (80.0-98.0) fL MCH (27.0-33.0) pg MCHC (31.0-35.0) g/dl RDW (11.0-16.0) % Plt Count (160-400) X10*3/uL MPV (9.4-12.3) fL Immature Gran % (Auto) (0.0-0.4) % Neut % (Auto) (45-73) % Lymph % (Auto) (20-40) % [place] % (Auto) (2-11) % Eos % (Auto) (0-4) % Baso % (Auto) (0-2) % Lymph # (Auto) (1.2-4.9) X10*3/uL [place] # (Auto) (0.1-1.2) X10*3/uL Eos # (Auto) (0.0-0.4) X10*3/uL Baso # (Auto) (0.0-0.2) X10*3/uL Abs Immat Gran (auto) (0.00-0.03) X10*3/uL Absolute Neuts (auto) (2.0-8.3) x10*3/uL Absolute Nucleated RBC (0.0-0.012) X10*3/uL Nucleated RBC % (auto) (0.0-0.2) /100WBC ESR (0-20) MM/HR Sodium (135-145) mmol/L Potassium (3.3-5.1) mmol/L Chloride (96-108) mmol/L Carbon Dioxide (22-29) mmol/L Anion Gap (12-20) BUN (9-16) mg/dL Creatinine (0.5-1.4) mg/dL Estim Creat Clear Calc Estimated GFR Random Glucose (60-115) mg/dL Lactic Acid (0.5-2.0) mmol/L Calcium (8.4-10.2) mg/dL Magnesium (1.6-2.6) mg/dL Total Bilirubin (0.0-1.0) mg/dL AST (5-31) U/L ALT (0-31) U/L Alkaline Phosphatase (39-117) U/L C-Reactive Protein (< or = 0.50) mg/dL Total Protein (6.5-8.0) g/dL Albumin (3.5-5.0) g/dL Lipase (8-78) U/L Beta HCG, Quant mIU/mL Urine Color Dark Yellow Urine Appearance Clear Urine pH 5.5 (5.0-9.0) Ur Specific [place] >= 1.030 H (1.005-1.025) Urine Protein Negative (Neg-Trace) mg/dL Urine Glucose (UA) Negative (Negative) mg/dL Urine Ketones Trace (Negative) mg/dL Urine Blood Moderate (2+) H (Negative) Urine Nitrite Negative (Negative) Ur Leukocyte Esterase Negative (Negative) Urine RBC >20 H (0-2) /HPF Urine WBC 0-5 (0-5) /HPF Ur Squamous Epith Cells 3-5 (0-2) /HPF Urine Bacteria Trace (None Seen) Hyaline Casts 0-2 (0-2) /LPF Urine Opiates Screen (Not Detect) Ur Buprenorphine Scrn (Not Detect) ng/mL Ur Oxycodone Screen (Not Detect) ng/mL Urine Methadone Screen (Not Detect) ng/mL Urine Fentanyl Screen (Not Detect) Ur Barbiturates Screen (Not Detect) Ur Phencyclidine Scrn (Not Detect) Ur Amphetamines Screen (Not Detect) U Benzodiazepines Scrn (Not Detect) Urine Cocaine Screen (Not Detect) U Marijuana (THC) Screen (Not Detect) Influenza Type A (PCR) NEGATIVE (Negative) Influenza Type B (PCR) NEGATIVE (Negative) RSV RNA Qual (PCR) NEGATIVE (Negative) SARS-CoV-2 RNA (RT-PCR) NEGATIVE (Negative) Independent Interpretation I performed an independent interpretation of an: Plain X-Ray Interpretation: My interpretation of the patient's right hip x-rays as follows: No acute disease Radiology Impression Discussion of test interpretation with radiology: I have reviewed the radiologist's reading. Radiologist Impression: Right hip: Visualized portions of the proximal right femur appears intact. No trabecular disruption or cortical discontinuity. Femoral head is appropriately seated in the acetabulum. IMPRESSION: 1. No radiographic evidence of acute injury to the pelvis and right hip. This document has been electronically signed by: Vincent Panda MD on 09/14/2024 18:21:36 CT lumbar spine with contrast Comparison: None Findings: Normal vertebral body alignment. No acute fractures or dislocations. Osteopenia. Focal spondylosis at L5-S1 with degenerative disc disease, vacuum phenomena and posterior disc osteophyte complex. Mild disc bulge at L3-L4. Disc bulge with superimposed central disc extrusion at L4-L5 with inferior migration measuring 1.9 cm in craniocaudal dimension, and moderate spinal canal narrowing. Disc bulge at L5-S1, eccentric to the right, with mild spinal canal narrowing. Multilevel foraminal stenoses bilaterally, for example moderate to severe L5-S1. Normal appendix. Partially imaged multifibroid uterus. IMPRESSION: No acute lumbar spine fracture. Additional findings described, please see above. This document has been electronically signed by: Jose Cummins MD on 09/14/2024 23:14:25 Independent Historian Clinical information obtained from an independent historian. History obtained from or confirmed by: Friend Prescription Management I considered prescription management with: Pain Medication ( Vicodin and gabapentin) and Other ( muscle relaxant: Cyclobenzaprine/Flexeril) Discharge Plan Discharge Clinical Impression: Neuropathic pain, Degenerative disc disease at L5-S1 level Patient Disposition: Home, Self-Care Additional Instructions: Your blood work today was unremarkable except for an elevated white blood cell count which is sometimes caused by prednisone and it was not related to an infection. Your inflammatory markers (ESR and CRP) were normal which suggests have an infection as the cause of your pain. The x-ray of your right hip did not reveal any findings to explain your pain. The lumbar x-rays did reveal degenerative disc disease and some degenerative joint disease The CAT scan of your lumbar spine did reveal disc disease especially at L5-S1 with extrusion to the right and I believe that this disc may be causing your neuropathic pain in your buttocks area and hip has shown on the dermatome map that I reviewed with you. Continue taking the prednisone 60 mg once a day as prescribed during your last ED visit until you complete the 5 day course. Take Flexeril (cyclobenzaprine) 10 mg pills, 1 pill every 6-8 hours as needed for pain or spasm. This medication will make you sleepy. Do not drive or work while taking this medication. Take gabapentin 300 mg pills, 1 pill tonight, 1 pill twice a day tomorrow and then 1 pill 3 times a day for at least 2-3 weeks to see if this helps your pain. Gabapentin is a medication that helps with neuropathic pain. For pain not relieved by Flexeril or gabapentin take Vicodin 1 pill every 4- 6 hours as needed for pain. This medication will make you sleepy, do not drive or work while taking this medication. Vicodin is a narcotic medication and can be addicting. If you are concerned about addiction you can ask the pharmacist for less pills or do not get this prescription filled. Follow-up with your doctor in 2 days. Please return to the emergency department if your symptoms get worse or if you develop any symptoms that are concerning to you. Please see the work note Prescriptions: New gabapentin 300 mg capsule 300 mg PO TID 21 Days Qty: 63 0RF hydrocodone-acetaminophen 5-300 mg tablet 1 tab PO Q4-6H PRN (Reason: pain) Qty: 14 0RF Rx Instructions: Partial Fill upon patient request. cyclobenzaprine 10 mg tablet 10 mg PO TID PRN (Reason: muscle spasm) Qty: 20 0RF No Action ofloxacin 0.3 % drops 10 drp otic (ear) left DAILY 7 Days Qty: 5 0RF levofloxacin 750 mg tablet 750 mg PO DAILY 10 Days Qty: 10 0RF prednisone 20 mg tablet 60 mg PO DAILY 5 Days Qty: 15 0RF lidocaine [Lidoderm] 5 % adhesive patch,medicated 1 patch topical DAILY Qty: 15 0RF Rx Instructions: leave on most painful area for up to 12 hrs buspirone 15 mg tablet 15 mg PO TID clonazepam 2 mg tablet 2 mg PO BID PRN Interventions: ED Discharge Assessment Last Done: 09/15/24 01:11 Discharge Date/Time: 09/15/24 01:12 Print Language: Kiswahili
[2024-09-14 18:43] LABS: MANUAL DIFF FLAG NO
[2024-09-14 18:45] LABS: Basophils Absolute Auto 0.1 X10*3/uL (0.0-0.2); Basophils Percent Auto 0.4 % (0-2); Eosinophils Absolute Auto 0.1 X10*3/uL (0.0-0.4); Eosinophils Percent Auto 0.7 % (0-4); Hematocrit 37.2 % (37.0-47.0); Imm Gran Abs Auto 0.07 X10*3/uL (0.00-0.03); Imm Gran Pct Auto 0.4 % (0.0-0.4); Lymphocytes Percent Auto 27.8 % (20-40); Mean Corpuscular HGB Conc 32.3 g/dl (31.0-35.0); Mean Corpuscular Hemoglobin 26.8 pg (27.0-33.0); Mean Corpuscular Volume 83.2 fL (80.0-98.0); Mean Platelet Volume 11.7 fL (9.4-12.3); Monocytes Absolute Auto 1.1 X10*3/uL (0.1-1.2); Monocytes Percent Auto 6.3 % (2-11); Neutrophils Absolute Auto 11.5 x10*3/uL (2.0-8.3); Neutrophils Percent Auto 64.4 % (45-73); Platelet Count 353 X10*3/uL (160-400); Red Blood Count 4.47 X10*6/uL (4.20-5.50); Red Cell Distribution Width 18.8 % (11.0-16.0); White Blood Count 17.9 X10*3/uL (4.8-10.8)
[2024-09-14 19:00] LABS: Lactic Acid 0.9 mmol/L (0.5-2.0)
[2024-09-14 19:05] LABS: Alanine Aminotransferase 10 U/L (0-31); Albumin Level 4.8 g/dL (3.5-5.0); Alkaline Phosphatase 57 U/L (39-117); Anion Gap 9 (12-20); Aspartate Amino Transferase 12 U/L (5-31); Bilirubin Total 0.3 mg/dL (0.0-1.0); Blood Urea Nitrogen 13 mg/dL (9-16); C Reactive Protein 0.11 mg/dL (< or = 0.50); Calcium 9.8 mg/dL (8.4-10.2); Carbon Dioxide 25 mmol/L (22-29); Chloride 112 mmol/L (96-108); Creatinine Clr Calc Pharmacy 98.1; Estimated Glomerular Filt Rate > 60; Glucose Random 103 mg/dL (60-115); Lipase 20 U/L (8-78); Magnesium 1.9 mg/dL (1.6-2.6); Potassium 3.4 mmol/L (3.3-5.1); Sodium 143 mmol/L (135-145); Total Protein 7.6 g/dL (6.5-8.0)
[2024-09-14 19:06] LABS: HCG Quantitative < 2 mIU/mL
[2024-09-14 19:22] LABS: Influenza A PCR NEGATIVE (Negative); Influenza B PCR NEGATIVE (Negative); Resp Syncy Virus RNA Qual PCR NEGATIVE (Negative); SARS COV2 PCR INHOUSE NEGATIVE (Negative)
[2024-09-14 19:22] LABS: Erythrocyte Sedimentation Rate 7 MM/HR (0-20)
[2024-09-14 20:52] VITALS: BP 136/72; PULSE 69; RESP 16; TEMP 36.8; O2SAT 97
[2024-09-14 21:35] VITALS: BP 125/56; PULSE 61; RESP 16; TEMP 36.4; O2SAT 98
[2024-09-14 21:45] LABS: Appearance Urine Clear; Color Urine Dark Yellow; Glucose Urine UA Negative (Negative); Leukocyte Esterase Urine Negative (Negative); Nitrite Urine Negative (Negative); PH 5.5 (5.0-9.0); Specific Gravity - Urine >= 1.030 (1.005-1.025); UMIC TRIGGER UACC YES; Urine Blood Moderate (2+) (Negative); Urine Ketones Trace mg/dL (Negative); Urine Protein Negative (Neg-Trace)
[2024-09-14 21:48] LABS: Bacteria Urine Trace (None Seen); Hyaline Casts Urine 0-2 /LPF (0-2); RBC Urine >20 /HPF (0-2); WBC Urine 0-5 /HPF (0-5)
[2024-09-14 21:55] LABS: Amphetamine Screen Urine Not Detected (Not Detect); Barbiturates, Urine Not Detected (Not Detect); Benzodiazepines Screen Urine POSITIVE (Not Detect); Buprenorphine Scr Not Detected (Not Detect); Cannabinoid Screen Urine Not Detected (Not Detect); Cocaine Screen Urine Not Detected (Not Detect); Fentanyl, urine Not Detected (Not Detect); Methadone Screen, Urine Not Detected (Not Detect); Opiate Screen Urine Not Detected (Not Detect); Oxycodone Screen Urine Not Detected (Not Detect); Phencyclidine Screen Urine Not Detected (Not Detect)
--- NOTE | 2024-09-14 22:46 | PC.NURSE ---
18g IV access established in left AC while in CT scan. Provider changed order to receive IV contrast. Plan to administer medications upon return.
[2024-09-14] MEDS: iohexoL 350 MG/ML 100 ML INFUS..BTL 85 ML IV (22:47)
[2024-09-14] MEDS: ondansetron HCL 4 MG/2 ML VIAL IVPUSH (23:01)
[2024-09-14] MEDS: Cyclobenzaprine HCl 10 MG TABLET PO (23:01)
[2024-09-14 23:25] VITALS: BP 119/64; PULSE 66; RESP 16; TEMP 36.7; O2SAT 98
[2024-09-14] MEDS: Morphine Sulfate 4 MG/ML CARTRIDGE IVPUSH (23:31)
--- NOTE | 2024-09-14 23:39 | PC.NURSE ---
This conventional underwriter assumed care of this Pt at 2300. Pt A&Ox3, Pt reports 8/10 right hip pain, Pt medicated per AUG.
[2024-09-15 01:11] VITALS: BP 128/66; PULSE 72; RESP 16; TEMP 36.8; O2SAT 98
[2024-09-15 18:58] LABS: A. Phagocytphilium DNA,RT-PCR NOT DETECTED (NOT DETECTED); Babesia Microti DNA, RT-PCR NOT DETECTED (NOT DETECTED); Borrelia Miyamotoi,DNA RT-PCR NOT DETECTED (NOT DETECTED); E.Chaffeensis DNA RT-PCR NOT DETECTED (NOT DETECTED); Lyme(Borrelia ssp)DNA RT-PCR NOT DETECTED (NOT DETECTED)
== END 2024-09-15 01:12 | disposition home or self-care (01) ==
PROVIDERS: Physician Assistant; Emergency Provider Emergency Medicine Emergency Medical Services
DX: G62.9 Polyneuropathy, unspecified (principal); M51.370 Other intervertebral disc degeneration, lumbosacral region with discogenic back pain only; Z03.818 Encounter for observation for suspected exposure to other biological agents ruled out; F17.210 Nicotine dependence, cigarettes, uncomplicated; Z79.899 Other long term (current) drug therapy
CPT/HCPCS: 0241U; 72132; 73502; 80053; 80307; 81001; 83605; 83690; 83735; 84702; 85025; 85652; 86140; 87040; 87468; 87469; 87478; 87484; 87798; 96374; 96375; 99284; J2270; J2405; Q9967

== ENCOUNTER → 2024-09-14 17:50 | Outpatient (BNV) | payer MEDICARE, MEDICAID, SELFPAY | PROVIDERS: Visit Provider Radiology Diagnostic Radiology | DX: Z96.641 Presence of right artificial hip joint (principal) | CPT/HCPCS: 73502 ==

== ENCOUNTER 2025-01-04 13:33 | Outpatient (AMB) | payer MEDICARE, MEDICAID, SELFPAY ==
--- NOTE | 2025-01-04 13:40 | A.OFFPC_ITS ---
Vital Signs 01/04/25 13:42 Height 5 ft 4 in Weight 183 lb BMI 31.4 BP 134/72 Blood Pressure Location Lt brachial Position Sitting Oxygen Delivery Method Room Air Intake Visit Reasons: establish care Nursing Consultant Required: No Accompanied by: Self / Same As Patient Allergies oxycodone (Percocet) Adverse Reaction (Unknown, Verified 01/04/25 13:55) increased anxiety, itching Medication List - Last Reconciled 01/04/25 by Loyda Jade PA-C buspirone 15 mg PO TID clonazepam 2 mg PO BID PRN ferrous sulfate 325 mg PO DAILY magnesium gluconate 54 mg PO DAILY Dental Screening Dental Screen Date: 01/04/25 Did you have a dental visit in the last 12 months?: Yes Did you have a dental problem in the last 6 months where you did not have access to dental care?: No Was dental information given to patient?: Patient has dentist HPI establish care HPI Details 39-year-old female coming to the office with the 1st time. Presenting with concerns about ear pressure, shoulder pain, and follow-up on previous mammogram findings. Persistent ear pressure and occasional pain since COVID-19, with fluid in the left ear. Symptoms worsen with environmental changes and improve with decongestants and allergy medications. Ear pain likely related to TMJ, with a history of teeth clenching and grinding, especially during stress. History of allergies causing postnasal drip and cobblestoning in the throat. Managed with Flonase and antihistamines. Chronic left shoulder pain with limited range of motion, exacerbated by physical activity. Began two years ago after a throwing incident. mammogram: [facility] [id number] pap smear: UTD with gynecology [facility] Medical History Cyst of buttocks Left breast abscess Subcutaneous abscess Depression No known health problems Surgical History History of loop electrical excision procedure (LEEP) History of delivery Family History Maternal Grandmother Stomach cancer Family/Other Thyroid cancer Social History Household Members: Spouse and Children Housing: House Alcohol intake: never Patient Tobacco Use Status: Current everyday Tobacco user Cigarette Packs Per Day: 0.5 Cigarettes Per Day: 5 Current occupational status: employed and unemployed Sexual orientation: Straight/Heterosexual Gender identity: Female Female Reproductive History Menstrual Age of Menarche: 11 Questionnaire PHQ-9 Over the last 2 weeks, how often have you been bothered by any of the following problems? 1. Little interest or pleasure in doing things: not at all 2. Feeling down, depressed, or hopeless: not at all 3. Trouble falling or staying asleep, or sleeping too much: not at all 4. Feeling tired or having little energy: not at all 5. Poor appetite or overeating: not at all 6. Feeling bad about yourself - or that you are a failure or have let yourself or your family down: not at all 7. Trouble concentrating on things, such as reading the newspaper or watching television: not at all 8. Moving or speaking so slowly that other people could have noticed. Or the opposite - being so fidgety or restless that you have been moving around a lot more than usual: not at all 9. Thoughts that you would be better off or of hurting yourself in some way: not at all Total score: 0 Depression Screening Interpretation: Negative Depression Screening Done: Yes 75117 - PHQ-9 Billing: Yes Source: Developed by Drs. Willie Guerrero, Jacquelyn Mustafa, Kirit Soto and colleagues, with an educational rodney from [employer]. Thrive Questionnaire Date Thrive assessed: 01/04/25 I am a: Patient What is your living situation today?: I have a steady place to live Within the past 12 months, did the food you bought not last and you didn't have the money to get more?: Often true Within the past 12 months, did you worry whether your food would run out before you got money to buy more?: Often true Do you have trouble paying for medicines?: No Do you have trouble getting transportation to medical appointments?: No Do you have trouble paying your heating and electricity bill?: No Do you have trouble taking care of your child, family member or friend?: No Do you have trouble with day-to-day activities such as bathing, preparing meals, shopping, managing finances, etc.?: No Are you currently unemployed and looking for a job?: No Are you interested in more education?: No Please select the resources that you would like help with: None Currently or been in a relationship where the following occur: No concerns reported THRIVE Score: 2 AUDIT C Alcohol Use Questionnaire (AUDIT-C) 1. How often do you have a drink containing alcohol?: Never 3. How often do you have six or more drinks on one occasion?: Never Total Score: 0 RONNA-7 AMB Questionnaire RONNA-7 Date RONNA - 7 assessed: 01/04/25 Feeling nervous, anxious, or on edge: 2 = More than half the days Not being able to stop or control worryin = Not at all Worrying too much about different things: 3 = Nearly every day Trouble relaxin = Not at all Being so restless that it is hard to sit still: 0 = Not at all Becoming easily annoyed or irritable: 0 = Not at all Feeling afraid as if something awful might happen: 0 = Not at all Total RONNA-7 score (0-4 normal; 5-9 mild; 10-14 moderate; 15-21 severe): 5 Source: Developed by Drs. Willie Guerrero, Jacquelyn Mustafa, Kirit Soto and colleagues, with an educational rodney from [employer]. RONNA-7 Assessment Billing RONNA-7 Assessment Tool: RONNA-7 Assessment 04218 Review of Systems Const Denies body aches, Denies chills, Denies fever(s), Denies headache(s) and Denies poor appetite Eyes Reports no additional complaints ENT Details: HPI Denies dysphagia, Denies dizziness, Denies headache(s) and Denies odynophagia Card Denies chest pain, Denies syncope, Denies edema, Denies irregular heart rhythm, Denies lightheadedness and Denies dyspnea Resp Denies cough and Denies dyspnea GI Denies abdominal pain, Denies constipation, Denies dysphagia, Denies diarrhea, Denies nausea, Denies odynophagia and Denies vomiting Reports no additional complaints Musc Reports no additional complaints and Denies abnormal gait Skin/Breast Reports system reviewed and no additional complaints, except as documented Neuro Denies abnormal gait, Denies dizziness, Denies syncope and Denies headache(s) Psych Reports no additional complaints Physical exam (Primary Care) Vital Signs: Last Vital Signs BP 134/72 01/04/25 13:42 Oxygen Delivery Method Room Air 01/04/25 13:42 BMI result Body Mass Index 31.4 Tobacco/Smoking Status: Tobacco use Status Patient Tobacco Use Status Current everyday Tobacco 01/04/25 14:02 PHQ-9: PHQ-9 Score PHQ-9: Total score 0 01/04/25 16:36 Depression Screening Interpretation: Negative Thrive Assessment: Date of Thrive Assessment Date Thrive assessed 01/04/25 01/04/25 13:47 Currently or been in a relationship where the following occur: No concerns reported Const General: cooperative, healthy appearing, comfortable and no acute distress Orientation/consciousness: patient oriented x3 HENMT Head: Yes normocephalic Ears: hearing grossly normal bilaterally and TM abnormal with fluid behind the TM bilateral General nose exam: Normal external nose present Eyes General: appearance normal, both eyes and all related structures Conjunctivae: conjunctivae normal Neck Neck: Yes full ROM and Yes no lymphadenopathy Resp Effort & Inspection: normal respiratory effort Auscultation: clear to auscultation bilaterally, no crackles, no rales, no rhonchi and no wheezes Cardio Rate: regular rate Rhythm: regular rhythm Skin General skin exam: no rashes or lesions noted Neuro General: patient oriented x3 Gait exam (Neuro): Normal gait present Extrem Other: pain to palpation of left shoulder and pain with internal rotation and lateral raise General: Yes normal to inspection, Yes full ROM and No edema Psych Affect: normal affect Attitude: cooperative Insight: Good insight present (Psych) Judgement: Good judgement present (Psych) Coding Level of Care Code New Pt Level 4 (48737) Diagnoses Mild episode of recurrent major depressive disorder F33.0 Active/Remission status: currently active Depression Type: major depressive disorder Major depression episode severity: mild Major depression recurrence: recurrent Generalized anxiety disorder F41.1 Lumbar degenerative disc disease M51.369 Tobacco use disorder F17.200 Left shoulder pain M25.512 Discomfort of right ear H92.01 Additional Codes RONNA-7 Assessment Billing - RONNA-7 Assessment Tool: RONNA-7 Assessment 49139 ([id number]) PHQ-9 - 38859 - PHQ-9 Billing: Yes ([id number]) Assessment & Plan Assessment & Plan (1) Depression: Code(s): F32.9 - Major depressive disorder, single episode, unspecified Category: Medical Qualifiers: Active/Remission status: currently active Depression Type: major depressive disorder Major depression episode severity: mild Major depression recurrence: recurrent Qualified Code(s): F33.0 - Major depressive disorder, recurrent, mild Plan: Patient currently following with a counselor and psychiatrist through [facility] as well and managed on BuSpar and clonazepam. She feels good on these medications at this time. (2) Generalized anxiety disorder: Comment: [facility] for psych and therapy Code(s): F41.1 - Generalized anxiety disorder Category: Medical Plan: See above plan (3) Lumbar degenerative disc disease: Comment: Mild disc bulge at L3-L4. Disc bulge with superimposed central disc extrusion at L4-L5 with inferior migration measuring 1.9 cm in craniocaudal dimension, and moderate spinal canal narrowing. Disc bulge at L5-S1, eccentric to the right, with mild spinal canal narrowing. Multilevel foraminal stenoses bilaterally, for example moderate to severe L5-S1. Code(s): M51.369 - Other intervertebral disc degeneration, lumbar region without mention of lumbar back pain or lower extremity pain Category: Medical Plan: Patient having lumbar degenerative disc disease as noted on the last x-ray. She did physical therapy exercises and improved her back pain conservatively. Continue to monitor at this time. Currently pain-free (4) Tobacco use disorder: Code(s): F17.200 - Nicotine dependence, unspecified, uncomplicated Category: Medical Plan: Smoking cigarettes and the use of tobacco can be harmful. We discussed the importance of stopping and options to aid in smoking cessation. Declining NRT or medical management at this time. (5) Left shoulder pain: Code(s): M25.512 - Pain in left shoulder Category: Medical Plan: Patient complaining of left shoulder pain worse with over the head activities and internal rotation of the left shoulder. Recommend obtaining an x-ray for further evaluation. Plan to treat conservatively at this time with physical therapy if desired, heating pads, lidocaine patches and Tylenol and ibuprofen as needed. (6) Discomfort of right ear: Code(s): H92.01 - Otalgia, right ear Category: Medical Plan: Patient having discomfort of the right ear and pressure sensation. On exam she does have fluid in bilateral ears concerning for possible eustachian tube dysfunction allergies. Recommend the use of Claritin daily and Flonase as well she may also use Sudafed as needed but no more than 3 days. She does also mentioned occasional right ear pain which is likely related to TMJ she does clench her teeth. Recommend the patient see her dentist for possible mouth guard. Plan The patient will have blood work to check cholesterol, thyroid, and vitamin D levels. Management of eustachian tube dysfunction includes treating allergies with Flonase and antihistamines, and using decongestants like Sudafed sparingly. For shoulder pain, an x-ray will assess for arthritis, with physical therapy recommended to improve range of motion. Preventative care involves a follow-up mammogram due to dense breast tissue findings. This note was constructed using voice recognition software. While every effort has been made to ensure accuracy and station agent, still areas may have been included sometimes these areas may affect the content or meeting of the given symptoms. Total time spent caring for the patient today was 30 minutes. This includes time spent before the visit reviewing the chart, time spent during the visit, and time spent after the visit and documentation. Patient was informed and verbally consented to the use of an ambient scribe for clinic note documentation during this visit. Orders: Orders Free T4 (Free Thyroxine) Today Z13.29 - Encounter for screening for other suspected endocrine disorder XR shoulder LT min 2V Today M25.512 - Pain in left shoulder Vitamin D 25-OH Total Today Z13.21 - Encounter for screening for nutritional disorder TSH reflex Free T4 Today Z13.29 - Encounter for screening for other suspected endocrine disorder Lipid Panel Today Z13.220 - Encounter for screening for lipoid disorders Medications: New loratadine (Allergy Relief (loratadine)) 10 mg PO DAILY 90 tabs 0RF fluticasone propionate 50 mcg/actuation (Flonase Allergy Relief) administer into each nostril 1 spray intranasal DAILY 16 grams 0RF lidocaine 5% leave on most painful area for up to 12 hrs 1 patch topical DAILY 30 ea 0RF Discontinued levofloxacin Discontinued Reason: Patient Completed Course 750 mg PO DAILY 10 days 10 tabs 0RF ofloxacin 0.3% Discontinued Reason: Patient no longer taking 10 drps otic (ear) left DAILY 7 days 5 mL 0RF lidocaine 5% (Lidoderm) leave on most painful area for up to 12 hrs Discontinued Reason: Patient Completed Course 1 patch topical DAILY 15 ea 0RF prednisone Discontinued Reason: Patient no longer taking 60 mg (3 x 20 mg) PO DAILY 5 days 15 tabs 0RF gabapentin Discontinued Reason: Patient Completed Course 300 mg PO TID 3 weeks 63 caps 0RF hydrocodone-acetaminophen 5-300 mg Partial Fill upon patient request. Discontinued Reason: Patient no longer taking 1 tab PO Q4-6H PRN 14 tabs 0RF pain cyclobenzaprine Discontinued Reason: Patient no longer taking 10 mg PO TID PRN 20 tabs 0RF muscle spasm
[2025-01-04 13:42] VITALS: BP 134/72; BMI 31.4
== END 2025-01-04 14:21 | disposition home or self-care (01) ==
LOC: HO.HMCH 13:34
DX: F33.0 Major depressive disorder, recurrent, mild (principal); F41.1 Generalized anxiety disorder; M51.369 Other intervertebral disc degeneration, lumbar region without mention of lumbar back pain or lower extremity pain; F17.200 Nicotine dependence, unspecified, uncomplicated; M25.512 Pain in left shoulder; H92.01 Otalgia, right ear

== ENCOUNTER → 2025-01-04 13:33 | Outpatient (BNVA) | payer MEDICARE, MEDICAID, SELFPAY | DX: F33.0 Major depressive disorder, recurrent, mild (principal); F41.1 Generalized anxiety disorder; M61.3 Calcification and ossification of muscles associated with burns; M25.512 Pain in left shoulder; H92.01 Otalgia, right ear; F17.200 Nicotine dependence, unspecified, uncomplicated; Z71.6 Tobacco abuse counseling | CPT/HCPCS: 96127; 99202 ==

== ENCOUNTER 2025-02-28 15:21 | Outpatient (AMB) | payer MEDICARE, MEDICAID, SELFPAY ==
--- NOTE | 2025-02-28 15:24 | A.OFFVIS_ITS ---
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 Complaining of vaginal discharge with might foul odor no itching Last Pap/HPV was in 10/10 was negative, history of KATHY 2 in 2010 Last Mammogram was BI-RADS 0 in 06/12 the patient did not schedule additional mammographic views [facility] Medical History Cyst of buttocks Left breast abscess Subcutaneous abscess Depression No known health problems Surgical History History of loop electrical excision procedure (LEEP) History of delivery Family History Maternal Grandmother Stomach cancer Family/Other Thyroid cancer Social History Household Members: Spouse and Children Housing: House Alcohol intake: never Patient Tobacco Use Status: Current everyday Tobacco user Cigarette Packs Per Day: 0.5 Cigarettes Per Day: 5 Current occupational status: employed and unemployed Sexual orientation: Straight/Heterosexual Gender identity: Female Female Reproductive History Menstrual Age of Menarche: 11 Date of last pap smear: 10/13/22 (negative pap smear, negative hpv ) Review of Systems Const All systems reviewed & are unremarkable except as noted in HPI and below Card Reports as per HPI Resp Reports as per HPI GI Reports as per HPI and Reports no additional complaints Reports as per HPI Physical Exam Vital Signs: Last Vital Signs BP 112/60 02/28/25 15:29 BMI result Body Mass Index 31.4 Const General: cooperative, healthy appearing and comfortable Chest Chest palpation & inspection: normal inspection of the chest and normal palpation of entire chest wall Breast/axilla inspection: normal inspection of the breasts and normal inspection of the axillae Breast/axilla palpation: normal palpation of the breasts, normal palpation of the axillae and no axillary lymphadenopathy Resp Effort & Inspection: normal respiratory effort Auscultation: clear to auscultation bilaterally Percussion: percussion normal Cardio Palpation: normal PMI Rate: regular rate Rhythm: regular rhythm Heart sounds: no murmurs and no rubs Peripheral pulses: Peripheral pulses 2+ throughout GI Inspection: Yes normal to inspection Palpation (GI): Soft to palpation, nontender, no guarding, not rigid and No hepatosplenomegaly present Percussion: Yes normal to percussion Auscultation: normal bowel sounds Rectal Exam - Female: deferred General: Yes bladder normal to palpation External Female Exam: No lesion Speculum Exam - Vagina: normal appearance of the vagina, normal palpation, normal vaginal discharge and not erythematous Speculum Exam - Cervix: normal appearance of the cervix and normal palpation Bimanual exam- vagina & uterus: normal bimanual exam, normal palpation, uterine size normal, bladder normal to palpation, consistency normal and normal palpation Bimanual Exam- Adnexa, other: normal adnexae, no masses and no tenderness Assessment & Plan Assessment & Plan (1) Well woman exam: Comment: KATHY 2 in 2011 status post LEEP Code(s): Z01.419 - Encounter for gynecological examination (general) (routine) without abnormal findings Category: Medical Plan: Cotesting done. Mammogram ordered. Counseled the patient about the recommended dietary allowance of 1000 mg of Calcium & 600 IU of vitamin D. The patient was instructed to perform monthly self-breast exams and to schedule an annual exam in a year; All questions answered and the patient verbalized understanding. Instructed the patient to schedule annual exam in a year (2) Uterine myoma: Code(s): D25.9 - Leiomyoma of uterus, unspecified Category: Medical Plan: Pelvic ultrasound ordered, instructions given the patient to schedule an ultrasound and a follow-up appointment within 2 weeks (3) Vaginal discharge: Code(s): N89.8 - Other specified noninflammatory disorders of vagina Category: Medical Plan: GC/CT taken with BV panel will check the results and treat accordingly. Orders: Orders MM tomosynthesis screening BI Today Z12.31 - Encounter for screening mammogram for malignant neoplasm of breast US pelvic and transvaginal Today D25.9 - Leiomyoma of uterus, unspecified Coding Level of Care Code Est Pt Prev Care 40-64y(68054) Diagnoses Well woman exam Z01.419 Uterine myoma D25.9 Vaginal discharge N89.8
[2025-02-28 15:29] VITALS: BP 112/60; BMI 31.4
== END 2025-02-28 16:07 | disposition home or self-care (01) ==
LOC: HO.HWS 15:21
PROVIDERS: Visit Provider Obstetrics & Gynecology
DX: Z01.419 Encounter for gynecological examination (general) (routine) without abnormal findings (principal); N89.8 Other specified noninflammatory disorders of vagina; D25.9 Leiomyoma of uterus, unspecified
CPT/HCPCS: 99213; G0101; Q0091

== ENCOUNTER 2025-02-28 15:21 | Outpatient (REF) | payer MEDICARE, MEDICAID, SELFPAY ==
[2025-02-28 20:40] LABS: Bacterial Vaginosis PCR POSITIVE (Negative); Candida Group PCR NOT DETECTED (Not Detect); Candida glab krusei PCR NOT DETECTED (Not Detect); Trichomonas vaginalis PCR NOT DETECTED (Not Detect)
[2025-02-28 21:31] LABS: CT PCR NOT DETECTED (Not Detect.); NG PCR NOT DETECTED (Not Detect.)
== END 2025-02-28 15:22 | disposition home or self-care (01) ==
LOC: HO.LNP 15:21
PROVIDERS: Visit Provider Obstetrics & Gynecology
DX: Z01.419 Encounter for gynecological examination (general) (routine) without abnormal findings (principal); D25.9 Leiomyoma of uterus, unspecified; N89.8 Other specified noninflammatory disorders of vagina; Z12.31 Encounter for screening mammogram for malignant neoplasm of breast
CPT/HCPCS: 81515; 87491; 87591; 87626; 88175; 99212; G0101; Q0091

== ENCOUNTER 2025-04-09 10:02 | Outpatient (REF) | payer MEDICARE, MEDICAID, SELFPAY ==
[2025-04-09 11:34] LABS: Cholesterol 207 mg/dL (<200); HDL Cholesterol 32 mg/dL (>40); Triglycerides 159 mg/dL (<150)
[2025-04-09 12:01] LABS: Free T4 (Free Thyroxine) 0.89 ng/dL (0.71-1.85)
== END 2025-04-09 10:03 | disposition home or self-care (01) ==
LOC: HO.LAB 10:02
DX: Z13.29 Encounter for screening for other suspected endocrine disorder (principal); Z13.21 Encounter for screening for nutritional disorder; Z13.220 Encounter for screening for lipoid disorders; Z13.6 Encounter for screening for cardiovascular disorders
CPT/HCPCS: 36415; 80061; 82306; 84439; 84443

== ENCOUNTER 2025-04-10 11:26 | Outpatient (AMB) | payer MEDICARE, MEDICAID, SELFPAY ==
[2025-04-10 11:30] VITALS: BP 124/76; PULSE 74; TEMP 36.4; O2SAT 99; BMI 32.1
--- NOTE | 2025-04-10 11:30 | MHC.PC.OV ---
Vital Signs 04/10/25 11:30 Height 5 ft 4 in Weight 187 lb 4 oz BMI 32.1 BP 124/76 Blood Pressure Location Lt brachial Position Sitting Pulse 74 Pulse Source Pulse Oximeter Temp 97.5 F Temp Source Temporal Artery Scan Pulse Oximetry (%) 99 Oxygen Delivery Method Room Air Intake Visit Reasons: Annual Exam Allergies oxycodone (Percocet) Adverse Reaction (Unknown, Verified 04/10/25 11:45) increased anxiety, itching Medication List - Last Reconciled 04/10/25 by Loyda Jade PA-C buspirone 15 mg PO TID clonazepam 2 mg PO BID PRN ferrous sulfate 325 mg PO DAILY fluticasone propionate 50 mcg/actuation 1 spray intranasal DAILY magnesium gluconate 54 mg PO DAILY Tobacco use date assessed: 04/10/25 Dental Screening Dental Screen Date: 01/04/25 HPI Annual Exam HPI Details 39 year old female with past medical history of anxiety, depression and tobacco use disorder last seen 12/2024 coming in for annual exam. Patient tells us today she is feeling generally well. Her ear pain has improved with the use of antihistamines and Flonase nasal spray. She continues to have shoulder discomfort and has not yet completed the x-ray as there was an issue with the orders. She has no acute concerns today mammogram: 05/2024 pap smear: UTD through [facility] clinical rehabilitation coordinator vaccines: Td 2009 due and given today, declines flu shot PFSH Medical History Cyst of buttocks Left breast abscess Subcutaneous abscess Depression No known health problems Surgical History History of loop electrical excision procedure (LEEP) History of delivery Family History Maternal Grandmother Stomach cancer Family/Other Thyroid cancer Social History Household Members: Spouse and Children Housing: House Alcohol intake: never Patient Tobacco Use Status: Current everyday Tobacco user Cigarette Packs Per Day: 0.5 Cigarettes Per Day: 5 Current occupational status: employed and unemployed Sexual orientation: Straight/Heterosexual Gender identity: Female Female Reproductive History Menstrual Age of Menarche: 11 Questionnaire PHQ-9 Over the last 2 weeks, how often have you been bothered by any of the following problems? 1. Little interest or pleasure in doing things: not at all 2. Feeling down, depressed, or hopeless: not at all 3. Trouble falling or staying asleep, or sleeping too much: not at all 4. Feeling tired or having little energy: not at all 5. Poor appetite or overeating: not at all 6. Feeling bad about yourself - or that you are a failure or have let yourself or your family down: not at all 7. Trouble concentrating on things, such as reading the newspaper or watching television: not at all 8. Moving or speaking so slowly that other people could have noticed. Or the opposite - being so fidgety or restless that you have been moving around a lot more than usual: not at all 9. Thoughts that you would be better off or of hurting yourself in some way: not at all Total score: 0 Depression Screening Interpretation: Negative Depression Screening Done: Yes 16043 - PHQ-9 Billing: Yes Source: Developed by Drs. Willie Guerrero, Jacquelyn Mustafa, Kirit Soto and colleagues, with an educational rodney from [employer]. Thrive Questionnaire Date Thrive assessed: 04/10/25 I am a: Patient What is your living situation today?: I have a steady place to live Within the past 12 months, did the food you bought not last and you didn't have the money to get more?: Never true Within the past 12 months, did you worry whether your food would run out before you got money to buy more?: Never true Do you have trouble paying for medicines?: No Do you have trouble getting transportation to medical appointments?: No Do you have trouble paying your heating and electricity bill?: No Do you have trouble taking care of your child, family member or friend?: No Do you have trouble with day-to-day activities such as bathing, preparing meals, shopping, managing finances, etc.?: No Are you currently unemployed and looking for a job?: No Are you interested in more education?: I choose not to answer this question Please select the resources that you would like help with: None Currently or been in a relationship where the following occur: No concerns reported THRIVE Score: 0 AUDIT C Alcohol Use Questionnaire (AUDIT-C) 1. How often do you have a drink containing alcohol?: Never 2. How many drinks containing alcohol do you have on a typical day when you are drinking?: 1 or 2 3. How often do you have six or more drinks on one occasion?: Never Total Score: 0 RONNA-7 AMB Questionnaire RONNA-7 Date RONNA - 7 assessed: 04/10/25 Feeling nervous, anxious, or on edge: 3 = Nearly every day Not being able to stop or control worryin = Several days Worrying too much about different things: 1 = Several days Trouble relaxin = Not at all Being so restless that it is hard to sit still: 1 = Several days Becoming easily annoyed or irritable: 0 = Not at all Feeling afraid as if something awful might happen: 1 = Several days Total RONNA-7 score (0-4 normal; 5-9 mild; 10-14 moderate; 15-21 severe): 7 Source: Developed by Drs. Willie Guerrero, Jacquelyn Mustafa, Kirit Soto and colleagues, with an educational rodney from [employer]. RONNA-7 Assessment Billing RONNA-7 Assessment Tool: RONNA-7 Assessment 91417 Review of Systems Const Denies body aches, Denies chills, Denies fever(s), Denies headache(s) and Denies poor appetite Eyes Reports no additional complaints ENT Denies dysphagia, Denies dizziness, Denies headache(s) and Denies odynophagia Card Denies chest pain, Denies syncope, Denies edema, Denies irregular heart rhythm, Denies lightheadedness and Denies dyspnea Resp Denies cough and Denies dyspnea GI Denies abdominal pain, Denies constipation, Denies dysphagia, Denies diarrhea, Denies nausea, Denies odynophagia and Denies vomiting Reports no additional complaints Musc Details: Left shoulder pain Reports no additional complaints and Denies abnormal gait Skin/Breast Reports system reviewed and no additional complaints, except as documented Neuro Denies abnormal gait, Denies dizziness, Denies syncope and Denies headache(s) Psych Reports no additional complaints Physical exam (Primary Care) Vital Signs: Last Vital Signs Temp 97.5 F 04/10/25 11:30 Pulse 74 04/10/25 11:30 BP 124/76 04/10/25 11:30 Pulse Ox 99 04/10/25 11:30 Oxygen Delivery Method Room Air 04/10/25 11:30 BMI result Body Mass Index 32.1 Tobacco/Smoking Status: Tobacco use Status Tobacco use date assessed 04/10/25 04/10/25 11:38 Patient Tobacco Use Status Current everyday Tobacco 04/10/25 11:33 PHQ-9: PHQ-9 Score PHQ-9: Total score 0 04/10/25 12:24 Depression Screening Interpretation: Negative Thrive Assessment: Date of Thrive Assessment Date Thrive assessed 04/10/25 04/10/25 11:33 Currently or been in a relationship where the following occur: No concerns reported Const General: cooperative, healthy appearing, comfortable and no acute distress Orientation/consciousness: patient oriented x3 HENMT Head: Yes normocephalic Ears: hearing grossly normal bilaterally, external ears normal, TM's normal bilaterally and EAC's normal General nose exam: Normal external nose present Face and sinus: Yes normal facial exam and Yes sinuses nontender Mouth: Normal oral and palatal mucosa present and tongue normal Throat: Yes posterior oropharynx normal Eyes General: appearance normal, both eyes and all related structures Conjunctivae: conjunctivae normal Pupils: Equal, round and reactive pupils present EOM: EOMs intact bilaterally and No Nystagmus present Neck Neck: Yes normal visual inspection, Yes full ROM and Yes no lymphadenopathy Chest Chest palpation & inspection: normal inspection of the chest Resp Effort & Inspection: normal respiratory effort Auscultation: clear to auscultation bilaterally, no crackles, no rales, no rhonchi, no wheezes and breath sounds present Cardio Rate: regular rate Rhythm: regular rhythm Peripheral pulses: radial pulses present and dorsalis pedis present GI Inspection: Yes normal to inspection and No Abdominal wall edema Palpation (GI): Soft to palpation, not firm and nontender Auscultation: normal bowel sounds Rectal Exam - Female: deferred General: Yes no CVA tenderness Back/Spine/Pelvis Back: no CVA tenderness Skin General skin exam: no rashes or lesions noted Neuro General: patient oriented x3 Cranial nerves: Yes Equal, round and reactive pupils present, Yes Midline tongue present, Yes Ability to bilaterally elevate shoulders present and No Nystagmus present Gait exam (Neuro): Normal gait present Extrem General: Yes normal to inspection, Yes full ROM, No no pedal edema and No edema Psych Speech and movement: Normal speech and movement present Affect: normal affect Insight: Good insight present (Psych) Judgement: Good judgement present (Psych) Immunizations Boostrix Tdap 2.5 Lf unit-8 mcg-5 Lf/0.5 mL intramuscular syringe Performing Provider: Loyda Jade PA-C [facility] Administered by: Lazara Subramanian CMA on 04/10/25 12:24 Dose Route Admin Location Dispensed Lot Number Expiration Date [facility] Land[employer] Grader 0.5 mL IM Left Deltoid 0.5 mL [id number] 09/14/27 97599-843-82 [employer] Total Dispensed Waste 0.5 mL 0 % VIS Given Date VIS Provided VIS Publication Date 04/10/25 Single Vaccine 21 Eligibility Eligibility Date Funding Source Not [facility] Eligible 04/10/25 Private Coding Level of Care Code Est Pt Prev Care 40-64y(51531) Diagnoses Annual physical exam Z00.00 Mild episode of recurrent major depressive disorder F33.0 Active/Remission status: currently active Depression Type: major depressive disorder Major depression episode severity: mild Major depression recurrence: recurrent Generalized anxiety disorder F41.1 Tobacco use disorder F17.200 Lumbar degenerative disc disease M51.369 Left shoulder pain M25.512 Discomfort of right ear H92.01 Hypercholesteremia E78.00 Obesity (BMI 30.0-34.9) E66.9 Additional Codes RONNA-7 Assessment Billing - RONNA-7 Assessment Tool: RONNA-7 Assessment 17468 ([id number]) PHQ-9 - 77387 - PHQ-9 Billing: Yes ([id number]) Assessment & Plan Assessment & Plan (1) Annual physical exam: Code(s): Z00.00 - Encounter for general adult medical examination without abnormal findings Category: Medical Plan: Patient is up-to-date on all recommended routine screenings and vaccinations for her age. Blood work is up-to-date and has been reviewed with the patient today. Healthy diet and regular exercise is encouraged. Plan to follow up in 6 months or sooner as needed (2) Depression: Code(s): F32.9 - Major depressive disorder, single episode, unspecified Category: Medical Qualifiers: Active/Remission status: currently active Depression Type: major depressive disorder Major depression episode severity: mild Major depression recurrence: recurrent Qualified Code(s): F33.0 - Major depressive disorder, recurrent, mild Plan: Patient currently following with a counselor and psychiatrist through [facility] as well and managed on BuSpar and clonazepam. She feels good on these medications at this time. (3) Generalized anxiety disorder: Comment: [facility] for psych and therapy Code(s): F41.1 - Generalized anxiety disorder Category: Medical Plan: See above plan (4) Tobacco use disorder: Code(s): F17.200 - Nicotine dependence, unspecified, uncomplicated Category: Medical Plan: Smoking cigarettes and the use of tobacco can be harmful. We discussed the importance of stopping and options to aid in smoking cessation. Declining NRT or medical management at this time. She has been working on cutting back. (5) Lumbar degenerative disc disease: Comment: Mild disc bulge at L3-L4. Disc bulge with superimposed central disc extrusion at L4-L5 with inferior migration measuring 1.9 cm in craniocaudal dimension, and moderate spinal canal narrowing. Disc bulge at L5-S1, eccentric to the right, with mild spinal canal narrowing. Multilevel foraminal stenoses bilaterally, for example moderate to severe L5-S1. Code(s): M51.369 - Other intervertebral disc degeneration, lumbar region without mention of lumbar back pain or lower extremity pain Category: Medical Plan: Patient having lumbar degenerative disc disease as noted on the last x-ray. She did physical therapy exercises and improved her back pain conservatively. Continue to monitor at this time. Currently pain-free (6) Left shoulder pain: Code(s): M25.512 - Pain in left shoulder Category: Medical Plan: Patient complaining of left shoulder pain worse with over the head activities and internal rotation of the left shoulder. Recommend obtaining an x-ray for further evaluation. Plan to treat conservatively at this time with physical therapy, heating pads, lidocaine patches and Tylenol and ibuprofen as needed. (7) Discomfort of right ear: Code(s): H92.01 - Otalgia, right ear Category: Medical Plan: She continues to feel mild stuffiness in the ears and did clear up quite a bit. She will continue with allergy medication and flonase at this time. (8) Hypercholesteremia: Code(s): E78.00 - Pure hypercholesterolemia, unspecified Category: Medical Plan: Avoid foods that are high in cholesterol such as red meat, fried foods, eggs and baked goods. Triglyceride goal of less than 150 and LDL goal of less than 130. Last LDL mildly elevated she agrees to work on dietary and lifestyle modification. (9) Obesity (BMI 30.0-34.9): Code(s): E66.9 - Obesity, unspecified Category: Medical Plan: Healthy diet and regular exercise is encouraged. Plan This note was constructed using voice recognition software. While every effort has been made to ensure accuracy and coding team lead, still areas may have been included sometimes these areas may affect the content or meeting of the given symptoms. Total time spent caring for the patient today was 30 minutes. This includes time spent before the visit reviewing the chart, time spent during the visit, and time spent after the visit and documentation. Patient was informed and verbally consented to the use of an ambient scribe for clinic note documentation during this visit. Orders: Orders XR shoulder LT min 2V Today M25.512 - Pain in left shoulder PT Evaluation and Treatment Today M25.512 - Pain in left shoulder Lipid Panel 6 Months E78.00 - Pure hypercholesterolemia, unspecified TDaP Immunization Today Z23 - Encounter for immunization
== END 2025-04-10 12:37 | disposition home or self-care (01) ==
LOC: HO.HMCH 11:27
DX: Z00.00 Encounter for general adult medical examination without abnormal findings (principal); F33.0 Major depressive disorder, recurrent, mild; E66.9 Obesity, unspecified; Z68.32 Body mass index [BMI] 32.0-32.9, adult; F41.1 Generalized anxiety disorder; F17.200 Nicotine dependence, unspecified, uncomplicated; M51.369 Other intervertebral disc degeneration, lumbar region without mention of lumbar back pain or lower extremity pain; M25.512 Pain in left shoulder; H92.01 Otalgia, right ear; E78.00 Pure hypercholesterolemia, unspecified; Z23 Encounter for immunization

== ENCOUNTER → 2025-04-10 11:26 | Outpatient (BNVA) | payer MEDICARE, MEDICAID, SELFPAY | DX: Z00.00 Encounter for general adult medical examination without abnormal findings (principal); F41.9 Anxiety disorder, unspecified; F33.0 Major depressive disorder, recurrent, mild; F41.1 Generalized anxiety disorder; M51.369 Other intervertebral disc degeneration, lumbar region without mention of lumbar back pain or lower extremity pain; M25.512 Pain in left shoulder; H92.01 Otalgia, right ear; E78.00 Pure hypercholesterolemia, unspecified; E66.9 Obesity, unspecified; F17.210 Nicotine dependence, cigarettes, uncomplicated; Z23 Encounter for immunization; Z68.32 Body mass index [BMI] 32.0-32.9, adult | CPT/HCPCS: 90471; 90715; 96127; 99396 ==

== ENCOUNTER 2025-05-08 11:02 | Outpatient (REF) | payer MEDICARE, MEDICAID, SELFPAY ==
--- NOTE | ~2025-05-08 | US_ITS ---
EXAMINATION: US PELVIS TRANSABDOMINAL AND TRANSVAGINAL HISTORY: D25.9 - Leiomyoma of uterus, unspecified COMPARISON: Comparison is made with the prior examination dated 07/18/2024. TECHNIQUE: Transabdominal and endovaginal real-time 2D zhang-scale ultrasound was performed. FINDINGS: Uterus: The uterus is enlarged, measuring 12.8 x 6.3 x 7.2 cm. Multiple fibroids are again noted as described below: Right fundal fibroid measuring 3.0 x 3.7 x 3.5 cm (previously 3.9 x 4.2 x 3.6 cm). Fundal fibroid measuring 2.5 x 1.8 x 2.4 cm (previously 3.5 x 2.5 x 3.4 cm). Fundal fibroid measuring 2.5 x 1.7 x 2.2 cm (not seen previously). Posterior fibroid measuring 2.4 x 2.2 x 2.0 cm (previously 3.2 x 2.3 x 2.1 cm). Posterior lower uterine segment fibroid measuring 5.4 x 4.3 x 5.3 cm (previously 4.5 x 3.9 x 4.3 cm). Endometrium: The endometrial stripe measures 13 mm in thickness. Right ovary: The right ovary measures 2.1 x 3.1 x 1.6 cm. The right ovary is normal in size and echotexture. Left ovary: The left ovary measures 4.1 x 1.9 x 3.1 cm. The left ovary is normal in size and echotexture. Pelvic fluid: none. US/US pelvic and transvaginal IMPRESSION: Fibroid uterus as described. Electronically signed by: Willie Soliman MD 05/08/2025 12:21 PM [facility]
== END 2025-05-08 11:03 | disposition home or self-care (01) ==
LOC: HO.US 11:02
PROVIDERS: Visit Provider Obstetrics & Gynecology
DX: D25.9 Leiomyoma of uterus, unspecified (principal)
CPT/HCPCS: 76830; 76856

== ENCOUNTER → 2025-05-08 11:03 | Outpatient (BNV) | payer MEDICARE, MEDICAID, SELFPAY | PROVIDERS: Visit Provider Radiology Diagnostic Radiology | DX: D25.9 Leiomyoma of uterus, unspecified (principal) | CPT/HCPCS: 76830; 76856 ==

== ENCOUNTER 2025-06-06 07:28 | Outpatient (AMB) | payer MEDICARE, MEDICAID, SELFPAY ==
--- NOTE | 2025-06-06 07:28 | A.OFFVIS_ITS ---
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 05/14 pelvic ultrasound showed the following: Uterus: The uterus is enlarged, measuring 12.8 x 6.3 x 7.2 cm. Multiple fibroids are again noted as described below: Right fundal fibroid measuring 3.0 x 3.7 x 3.5 cm (previously 3.9 x 4.2 x 3.6 cm). Fundal fibroid measuring 2.5 x 1.8 x 2.4 cm (previously 3.5 x 2.5 x 3.4 cm). Fundal fibroid measuring 2.5 x 1.7 x 2.2 cm (not seen previously). Posterior fibroid measuring 2.4 x 2.2 x 2.0 cm (previously 3.2 x 2.3 x 2.1 cm). Posterior lower uterine segment fibroid measuring 5.4 x 4.3 x 5.3 cm (previously 4.5 x 3.9 x 4.3 cm). Endometrium: The endometrial stripe measures 13 mm in thickness. Right ovary: The right ovary measures 2.1 x 3.1 x 1.6 cm. The right ovary is normal in size and echotexture. Left ovary: The left ovary measures 4.1 x 1.9 x 3.1 cm. The left ovary is normal in size and echotexture. Pelvic fluid: none. [facility] Medical History Cyst of buttocks Left breast abscess Subcutaneous abscess Depression No known health problems Surgical History History of loop electrical excision procedure (LEEP) History of delivery Family History Maternal Grandmother Stomach cancer Family/Other Thyroid cancer Social History Household Members: Spouse and Children Housing: House Alcohol intake: never Patient Tobacco Use Status: Current everyday Tobacco user Cigarette Packs Per Day: 0.5 Cigarettes Per Day: 5 Current occupational status: employed and unemployed Sexual orientation: Straight/Heterosexual Gender identity: Female Female Reproductive History Menstrual Age of Menarche: 11 Review of Systems Const All systems reviewed & are unremarkable except as noted in HPI and below Reports as per HPI and Reports no additional complaints GI Reports no additional complaints Reports no additional complaints Telehealth Telehealth Telehealth Platform: [employer] Location of provider rendering services: practice address Location of patient: address on file Patient Identification confirmed using: Name, : Yes Telehealth method: video Patient verbally consented to treatment: Yes Patient verbally consented to billing insurance company: Yes Patient informed of any privacy concerns related to visit: Yes Minutes spent on Phone/Video with Pt.: 5 Assessment & Plan Assessment & Plan (1) Uterine myoma: Code(s): D25.9 - Leiomyoma of uterus, unspecified Category: Medical Plan: Discussed with the patient the findings on pelvic ultrasound & the risk of myosarcoma; in addition reviewed with the patient that malignancy and pre malignancy cannot be ruled out without hysterectomy for pathological evaluation ; furthermore, explained to the patient the limitation of pelvic ultrasound and endometrial biopsy in the setting. Discussed with the patient the options of treatment including expectant management versus hysterectomy; the pros and cons, risks benefits of each approach were discussed with the patient including the fact that in cases of myosarcoma, surgical treatment can lead to early diagnosis and positively affects the prognosis; after further discussion, the patient decided to proceed with expectant management. Will repeat pelvic ultrasound periodically. Instructions given to patient to call in case any of the following occurs: pressure symptoms, abnormal uterine bleeding, pelvic pain; and to schedule a 12- months pelvic ultrasound (order placed) and a follow-up appointment . All questions answered, the patient verbalized understanding and agreed with the plan . I spent a total of 20 minutes reviewing the chart, talking to the patient via video and documenting in the medical record. Orders: Orders US pelvic and transvaginal 1 Year D25.9 - Leiomyoma of uterus, unspecified Coding Level of Care Code Tele Est Pt Level 3 (71136) Diagnoses Uterine myoma D25.9
== END 2025-06-06 08:39 | disposition home or self-care (01) ==
LOC: HO.HWS 07:28
PROVIDERS: Visit Provider Obstetrics & Gynecology
DX: D25.9 Leiomyoma of uterus, unspecified (principal)
CPT/HCPCS: 99213